=== PATIENT | male | born 1950 | race Caucasian/White ===

== ENCOUNTER 2016-05-05 12:43 | Inpatient (IN) | payer MEDICAID ==
[~2016-05-05] VITALS: Ht 177.8 cm; Wt 95.9 kg
[2016-05-05 14:07] LABS: BASOPHILS 0.4 % (0.0-2.0); EOSINOPHILS 0.9 % (0-7); IMMATURE GRANULOCYTES 0.9 % (0-5); LYMPHOCYTES 8.9 % (15-50); MCH 29.8 pg (26.0-34.0); MCHC 31.7 g/dL (31.0-37.0); MEAN PLATELET VOLUME 10.7 fL (7.4-10.4); MONOCYTES 9.4 % (2-11); NEUTROPHILS 79.5 % (40-80); PLATELET COUNT 277 10x3/uL (130-400); RBC 4.36 10x6/uL (4.20-6.10); RDW 14.7 % (11.5-14.5)
[2016-05-05 14:46] LABS: ALBUMIN 2.6 g/dL (3.4-5.0); ANION GAP 11.9 mmol/L (8-16); BILIRUBIN - TOTAL 0.59 mg/dL (0.2-1.3); CALCIUM 8.9 mg/dL (8.5-10.1); CARBON DIOXIDE 30.1 mmol/L (21.0-32.0); CREATININE - SERUM 1.4 mg/dL (0.6-1.3); PROTEIN - SERUM 7.1 g/dL (6.4-8.2)
[2016-05-05 16:41] LABS: CREATINE KINASE 92 UL (21-232); MAGNESIUM - SERUM 2.3 mg/dL (1.8-2.4)
[2016-05-05 16:49] LABS: KETONE - SERUM NEGATIVE (NEGATIVE)
--- NOTE | 2016-05-05 18:12 | NUR ---
RECEIVED FROM ER VIA STRECHER, LASIX GIVEN IN ER, L.FA., EDEMA TO LOWER EXTREMIES
[2016-05-05] MEDS ORDERED: CORDARONE200 MG PO (18:21)
[2016-05-05] MEDS ORDERED: FUROSEMIDE40 MG PO (18:21)
[2016-05-05] MEDS ORDERED: K-DUR20 MEQ PO (18:21)
[2016-05-05] MEDS ORDERED: COREG 3.1253.125 MG PO (18:22)
--- NOTE | 2016-05-05 18:30 | NUR ---
PT IN BED DRY HACKING COUGH NOTED PT REQUESTS COUGH SYRUP TOLD PT WOULD CHECK ORDERS
[2016-05-05] MEDS ORDERED: GLUCOPHAGE1000 MG PO (19:02)
[2016-05-05] MEDS ORDERED: LISINOPRIL10 MG PO (19:03)
[2016-05-05 20:17] LABS: HEMOGLOBIN A1C 9.7 % (4.8-6.0)
[2016-05-05 22:29] VITALS: BP 134/77; BMI 32.3
--- NOTE | 2016-05-05 22:49 | NUR ---
PT ARRIVED FROM ER BY STRETCHER LOWER EDEMA+3 OBSERVEDANDABDDISTENDED PT IBM822% ON ROOM AIR AND DIMINISHED LUNG SOUNDS TO LOWER LOBES. RESPERATIONS UNLABORED. LOWER EDEMA TO LOWER RIGHT AND LEFT LEGS WITH EXCORIATION PRESENT HEELS BRIGED AND BED BATH GIVEN AND LINENS CHANGED WILL MONITOR PT
[2016-05-05 23:13] VITALS: BP 131/100
--- NOTE | 2016-05-06 03:33 | NUR ---
PT LAYING IN BED EYES CLOSED NO DISTRESS OBSERVED AT THIS TIME RESPERATIONS EVEN AND UNLABORED ON ROOM AIR PIV SALINE LOCKED AND NO REDNESS OR SWELLING OBSERVED WILL MONITOR
[2016-05-06 04:04] VITALS: BP 122/83
[2016-05-06 05:16] LABS: BASOPHILS 0.3 % (0.0-2.0); EOSINOPHILS 0.1 % (0-7); HEMATOCRIT 40.3 % (42.0-54.0); HEMOGLOBIN 12.6 g/dL (13.5-17.5); IMMATURE GRANULOCYTES 0.5 % (0-5); LYMPHOCYTES 10.8 % (15-50); MCH 29.5 pg (26.0-34.0); MCHC 31.3 g/dL (31.0-37.0); MCV 94.4 fL (80.0-100.0); MEAN PLATELET VOLUME 11.1 fL (7.4-10.4); MONOCYTES 7.1 % (2-11); NEUTROPHILS 81.2 % (40-80); PLATELET COUNT 315 10x3/uL (130-400); RBC 4.27 10x6/uL (4.20-6.10); RDW 14.8 % (11.5-14.5); WBC 9.3 10x3/uL (4.8-10.8)
[2016-05-06 05:26] LABS: ANION GAP 9.5 mmol/L (8-16); CALCIUM 8.6 mg/dL (8.5-10.1); CARBON DIOXIDE 31.4 mmol/L (21.0-32.0); CREATININE - SERUM 1.6 mg/dL (0.6-1.3)
[2016-05-06 05:36] LABS: POTASSIUM - SERUM 4.9 mmol/L (3.5-5.1)
--- NOTE | 2016-05-06 07:22 | NUR ---
0710-SITTING UP IN BED, DENIES NEEDS AT PRESENT TIME. DRIED POOP SEEN TO HEART MONITOR. BILATERAL LOWER LEGS ARE RED WITH WHITE PATCHES AND WEEPING EDEMA, BOTTOM OF FEET ARE PEELING. ON HEART MONITOR SHOWING SR, HR 73. WILL CONTINUE TO MONITOR.
[2016-05-06 07:56] VITALS: BP 107/64
--- NOTE | 2016-05-06 08:39 | HP ---
PATIENT: JOAQUINA MCKEON MEDICAL RECORD: [id number] ACCOUNT: [id number] LOCATION:[address] : [birth year] ADMISSION DATE: 05/05/16 HISTORY AND PHYSICAL EXAMINATION Admission History and Physical DATE OF ADMISSION: 05/05/2016 REASON FOR ADMISSION: Increased lower extremity edema, cough, fever, hard time breathing, uncontrolled diabetes. HISTORY OF PRESENT ILLNESS: This is a 66-year-old white male who states he moved back to [place] 4 or 5 months ago to live with his son. He was here back in 2007 and prior to that, he had been living in [place]. He does not have a local primary care doctor. He states he has high blood pressure and diabetes. He is not aware of diagnosis of atrial fibrillation. He came in with increased lower extremity edema, cough, fever and hard time breathing. In the ER, he was noted to have 3-4+ pitting edema in the lower extremities with some open wounds. He has anasarca to the abdominal area. His potassium was elevated at 6.0, glucose elevated at 356. ProBNP is 9093. EKG showed atrial fibrillation with rapid ventricular response with a rate of 119. He is admitted for further care. PAST MEDICAL AND SURGICAL HISTORY: Again, diabetes, hypertension, hyperlipidemia, he does not know of any coronary problems. PAST SURGICAL HISTORY: None. ALLERGIES: PENICILLIN, SULFA, AND FLU SHOT. 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 FAMILY HISTORY: Father in his 70s of a stroke. He had hypertension. Mother of liver cancer at age 86. A sister with diabetes. HABITS: He states he is a former smoker, quitting years ago. He used to drink heavily, quit years ago. Denies any illicit drug use. REVIEW OF SYSTEMS: HEENT: No particular sinus or allergy problems. RESPIRATORY: No known diagnosis of emphysema or asthma. CARDIAC: No history of coronary artery disease. GASTROINTESTINAL: No known reflux. GENITOURINARY: No significant problems there. MUSCULOSKELETAL: He denies any arthritis. NEUROLOGIC: No seizure disorder. No migraine headaches. PSYCHIATRIC: Denies depression or melancholia. PHYSICAL EXAMINATION: VITAL SIGNS: Today from the ER, temperature 98.2, pulse was 118, respirations 18, blood pressure 117/80, O2 sat 97%. He states he was having generalized pain 5/10. HEENT: Very poor dentition with many teeth missing. NECK: No bruits. HISTORY AND PHYSICAL [id number] JOAQUINA MCKEON HEART: Irregularly irregular. LUNGS: A few rales in the bases. ABDOMEN: Soft, distended, nontender. EXTREMITIES: With 3-4+ pitting edema, cellulitis noted and sloughing of skin on the feet and both lower extremities. LABORATORY DATA: CBC showed a white count of 8000, hemoglobin 13, hematocrit 41. Basic metabolic panel: Sodium 136, potassium high at 6.0, chloride 100, CO2 of 30.1, BUN 26, creatinine 1.4, glucose was 356, calcium 8.9. Amylase 34, lipase ____. CK 92. TSH 3.4, magnesium 2.3, ammonia level is 11. Liver functions are all okay. ProBNP elevated at 9093. DIAGNOSTIC DATA: EKG: Atrial fibrillation with rapid ventricular response at 119. ASSESSMENT: 1. Uncontrolled diabetes. 2. Hyperkalemia. 3. Lower extremity edema. 4. Cellulitis. 5. Atrial fibrillation with rapid ventricular response. PLAN: We will start him on antibiotics for cellulitis, telemetry, we will check hemoglobin A1c, start on insulin sliding scale, order echo, consult cardiology, diuresis, Lovenox, Pepcid. I believe an order of Kayexalate was ordered from the Emergency Room and we will hold his potassium. Further workup is needed. TRANSINT:[id number] Voice Confirmation ID: [id number] DOCUMENT ID: [id number] ASHANTI SHARP MD at 0839 CC: [id number] DICTATION DATE: 05/05/161858 SUPERVISOR PARK WORKERS: 05/05/16 193 ADM IN [facility] [address] [place] [address]
--- NOTE | 2016-05-06 09:47 | NUR ---
WOUND CARE CONSULT: PT HAS 4+ EDEMA TO BLE WITH REDNESS AND WEEPING. HE HAS NUMEROUS WOUNDS BILATERALLY WITH THE LARGEST WOUND MEASURING 9CM X 9CM X WHITE/MARQUEZ ESCHAR ON THE LEFT LATERAL CALF. BILATERAL HEELS AND PLANTAR FEET ARE WRINKLED AND MACERATED. THERE IS A STAGE 2 PRESSURE INJURY NOTED ON THE RIGHT COCCYX MEASURING 2CM X 4CM - WOUND BED IS PINK - WOUND IS TENDER TO THE TOUCH - SCANT BLOODY DRAINAGE. STAGE 2 PRESSURE INJURY NOTED ON THE LEFT COCCYX MEASURING 0.5CM X 0.5CM - PINK WOUND BED WITH SCANT BLOODY DRAINAGE. CLEANSED LEGS AND FEET WITH SAF CLENS AND PATTED DRY. LEFT OPEN TO AIR. CLEANSED BOTTOM WITH SAF CLENS AND PATTED DRY AND COVERED WITH MEPILEX SACRAL DRESSING TO PROTECT. PT REPOSITIONED TO HIS LEFT SIDE. WOUND CARE WILL CONTINUE TO MONITOR.
--- NOTE | 2016-05-06 10:26 | NUR ---
RECEIVED CALL BACK FROM EMMA AT DR SHARP'S OFFICE FOR A ADA DIET. WILL PLACE THE ORDER.
[2016-05-06 10:53] LABS: APPEARANCE CLEAR (CLEAR); COLOR YELLOW (YELLOW); LEUKOCYTE ESTERASE NEGATIVE (NEGATIVE); SPECIFIC GRAVITY 1.015 (1.005-1.020)
[2016-05-06 10:54] LABS: BILIRUBIN NEGATIVE (NEGATIVE); GLUCOSE NEGATIVE (NEGATIVE); KETONE NEGATIVE (NEGATIVE); NITRITE NEGATIVE (NEGATIVE); PROTEIN NEGATIVE (NEGATIVE); UROBILINOGEN NORMAL (NORMAL)
[2016-05-06 11:37] VITALS: BP 91/59
--- NOTE | 2016-05-06 12:34 | NUR ---
0800-PATIENT IS CLEANED UP FROM INCONTINENT CARE OF STOOL AND URINE. SALINE LOCK SEEN TO LEFT FA, FLUSHES WELL. PATIENT HAS BILATERAL WHEEZING HEARD THROUGHOUT HIS LUNG GONCALVES, COUGHS WITH NO SPUTUM. PATIENT HAS 4+ EDEMA WITH REDNESS TO LOWER EXTREMITIES AND WEEPING SEEN. THERE IS SOME WHITE/VITALE ESCHAR SEEN TO LEFT LATERAL CALF. BILATEAL HEELS HAVE WRINKLES AND ARE MACERATED. STAGE 2 SEEN TO LEFT BUTTOCK, NO DRAINAGE SEEN. WOUND CARE CONSULT HAS BEEN PLACED. WILL CONTINUE TO MONITOR.
[2016-05-06 13:00] VITALS: Ht 177.8 cm; Wt 95.9 kg
--- NOTE | 2016-05-06 15:02 | NUR ---
CLEANED UP AGAIN FROM INCONT. OF STOOL. 100 CC OF URINE TO URNIAL NOTED.
[2016-05-06 15:40] VITALS: BP 95/63
[2016-05-06 20:57] VITALS: BP 87/70
--- NOTE | 2016-05-06 21:40 | NUR ---
PT AWAKE, ALERT, ORIENTED, DENIES ANY NEEDS OTHER THAN WANTING A SNACK. PT REQUESTS PUDDING, WILL GIVE HIM ONE CUP. CONTINUE TO MONITOR CLOSELY. WE DISCUSSED THE USE OF A SORIA CATHETER R/T HIM DIURESING AND BEING CONSTANTLY WET FROM THE WEEPING EDEMA AND URINE INCONTINENCE. PT IS AGREEABLE. WILL PLACE SORIA AND CONTINUE TO MONITOR PT CLOSELY. BED LOW, CALL LIGHT IN REACH, SIDE RAILS X 2, HOB 30 DEGREES.
[2016-05-07 00:34] VITALS: BP 119/68
[2016-05-07 04:31] VITALS: BP 100/65
--- NOTE | 2016-05-07 04:39 | NUR ---
PT HAS BEEN COUGHING EXCESSIVELY THIS SHIFT, UNPRODUCTIVE, AND FREQUENTLY. THERE IS NO PRN COUGH RX AT THIS TIME. WILL DISCUSS WITH DAY SHIFT ABOUT GETTING AN ORDER FROM PHYSICIAN. CONTINUE TO MONITOR CLOSELY.
--- NOTE | 2016-05-07 06:05 | NUR ---
PT AWAKE, ALERT, ORIENTED, SORIA PLACED, 200CC OF DARK, CONCETRATED URINE RETURNED. PT TOLERATED PLACEMENT WELL. DENIES ANY NEEDS. CONTINUE TO MONITOR CLOSELY.
[2016-05-07 07:40] VITALS: BP 100/67
[2016-05-07 11:48] VITALS: BP 90/57
--- NOTE | 2016-05-07 12:00 | NUR ---
PT HAVING SLIGHT TROUBLE BREATHING. RR 19 AND SLIGHTLY LABORED. 02 SAT 88%. PLACED NC @3L ON PT AND HE STATES HE IS BREATHING MUCH BETTER. 02 SAT INCREASED TO 96% PT VOICED THANKS AND IS RESTING QUIETLY. CL IN REACH. WILL CPOC.
--- NOTE | 2016-05-07 14:11 | NUR ---
Patient Name: JOAQUINA MCKEON Admission Status: ER Accout number: [id number] Admission Date: 05-05-2016 : 1950 Admission Diagnosis: Attending: BARRY Current LOS: 2 Anticipated DC Date: Planned Disposition: Home Primary Insurance: MEDICAID [place] Discharge Planning Comments: * Is the patient Alert and Oriented? Yes 0 * How many steps to enter\exit or inside your home? 2 0 * PCP NONE 0 * Pharmacy [facility] 0 * Preadmission Environment Home with Family 0 * ADLs Independent 0 * Equipment None 0 * Other Equipment NO MEDICAL EQUIPMENT PROVIDER PREFERENCE 0 * List name and contact numbers for known caregivers / representatives who currently or will assist patient after discharge: MYRANDA MCKEON, SON, 0 * Community resources currently utilized None 0 * Please name any agencies selected above. NONE 0 * Additional services required to return to the preadmission environment? No 0 * Can the patient safely return to the preadmission environment? Yes 0 * Has this patient been hospitalized within the prior 30 days at any hospital? No 0 CM MET WITH PT IN ROOM TO DISCUSS DISCHARGE PLANNING AND NEEDS. PT REPORTS LIVING AT HOME INDEPENDENTLY WITH AN ADULT FRIEND THAT ASSISTS WITH COOKING AND CLEANING. PT HAS NO MEDICAL EQUIPMENT AND NO OUTSIDE SERVICES ASSISTING IN THE HOME. CM DISCUSSED AVAILABILITY OF HOME HEALTH, REHAB SERVICES AND MEDICAL EQUIPMENT. PT DENIES DISCHARGE NEEDS, REPORTS HIS SON WILL PICK HIM UP FOR DISCHARGE HOME. PT HAS NO PRIMARY CARE DOCTOR AND WAS NOT FAMILIAR WITH MEDICAID TRANSPORTATION SERVICES. CM DISCUSSED [facility] C[facility] AND PROVIDED PT WITH [facility] INFORMATION TO ASSIST PT IN OBTAINING PRIMARY CARE. CM PROVIDED AND DISCUSSED [place] TRANSPORATION ([place]) NUMBERS AND HOW TO CERTIFY AND ARRANGE TRANSPORTATION IF HE QUALIFIES. PT PLANS TO DISCHARGE HOME WITH NO ANTICIPATED NEEDS. CM TO FOLLOW AND ASSIST NEEDED. Pump Installation And Servicer: Antoine Whittaker
--- NOTE | 2016-05-07 14:23 | NUR ---
EMPTIED SORIA BAG OF 1000ML YELLOW URINE. PT IS RESTING SITTING UP IN BED WATCHING TV. DENIES ANY PAIN OR CURRENT NEEDS. CL IN REACH. WILL CPOC.
[2016-05-07 16:18] VITALS: BP 94/66
--- NOTE | 2016-05-07 18:35 | NUR ---
PT HAS CONSISTENT HARSH DRY COUGH. REQUESTING SOMETHING TO HELP RELIEVE IT. CALLED AND REC'D NEW ORDERS. PT VOICED THANKS. NO FURTHER NEEDS AT THIS TIME.
--- NOTE | 2016-05-07 19:01 | NUR ---
PT ASKED TO GET OOB TO USE BR FOR BM. ASSISTED PT WITH MINIMAL ASSIST AND FOUND PTS SORIA TO BE PULLED OUT. PT STATES HE DIDNT EVEN NOTICE IT. PT WANTS TO USE URINAL INSTEAD OF HAVING A NEW SORIA PLACED SO WE WILL TRY THAT FOR NOW. CHANGED OUT LINENS AND PROVIDED PT WITH LOTION FOR SEVERLY DRY CRACKING FEET. PT VOICED THANKS AND STATES HE FEELS BETTER. SON AT BEDSIDE. PT RESTING AND DENIES ANY FURTHER NEEDS AT THIS TIME. CL IN REACH. WILL CPOC.
[2016-05-07 22:01] VITALS: BP 101/53
--- NOTE | 2016-05-08 00:12 | NUR ---
PT LYING IN BED, AWAKE, ALERT, ORIENTED, WAS HUNGRY EARLIER FROM BEING HELD NPO FOR ABD U/S. I GAVE HIM A TURKEY SANDWICH, CHOCOLATE PUDDING, VANILLA ICE CREAM, AND DIET L[place]ON [place]. WILL GET PT UP TO SHOWER, CHANGE LINENS, AND CONTINUE TO MONITOR CLOSELY.
[2016-05-08 01:10] VITALS: BP 110/73
[2016-05-08 05:33] VITALS: BP 106/75
[2016-05-08 06:00] LABS: ANION GAP 8.4 mmol/L (8-16); CALCIUM 8.5 mg/dL (8.5-10.1); CARBON DIOXIDE 35.3 mmol/L (21.0-32.0); CREATININE - SERUM 1.5 mg/dL (0.6-1.3); POTASSIUM - SERUM 3.7 mmol/L (3.5-5.1)
--- NOTE | 2016-05-08 06:42 | NUR ---
PT LYING IN BED, EYES CLOSED, RESPIRATIONS EVEN AND UNLABORED, EASILY ROUSABLE TO VERBAL STIMULI. CONTINUE TO MONITOR CLOSELY.
[2016-05-08 08:00] VITALS: BP 112/70
--- NOTE | 2016-05-08 09:02 | NUR ---
SHIFT ASSESSMENT COMPLETED. ADMINISTERED MORNING MEDICATIONS. PT IS A&O SITTING UP IN BED WATCHING TV RESTING QUIETLY. RR NONLABORED WITH NC @3L IN PLACE. UPPER LOBES HAVE WHEEZING AND RUBBING NOTED AND LOWER ARE DIMINISHED. PT REQUESTED AND WAS PROVIDED WITH PRN COUGH SYRUP FOR DRY COUGH. PT STATES HIS COUGH HAS IMPROVED GREATLY AFTER HIS FIRST DOSE LAST NIGHT. EMPTIED URINAL OF 300ML CLEAR YELLOW URINE. PT HAS A L.FA PIV THAT IS PATENT AND HAS DRSG CDI AND SWAB CAPS IN USE. PT HAS BILAT LE CELLULITIES AND BOTH CALVES ARE VERY RED, WARM TO THE TOUCH, AND HAVE OPENED AREAS WITH SORES THAT HAVE YELLOW TO BLACK NECROTIC BEDDING. CHANGED OUT LINENS R/T THEM BEING SOILED UNDER LEGS. PT VOICED THANKS AND STATES HE FEELS GOOD. PT DENIES ANY FURTHER NEEDS AT THIS TIME. CL IN REACH, BED IN LOWEST, SIDE RAILS X2. WILL CPOC.
[2016-05-08 12:00] VITALS: BP 101/55
--- NOTE | 2016-05-08 12:04 | NUR ---
FSBS 248 PT REC'D 4 UNITS PER SS. PT SITTING UP IN BED RESTING QUIETLY WATCHING TV AND EATING LUNCH TRAY. PT DENIES ANY CURRENT PAIN OR FURTHER NEEDS AT THIS TIME. CL IN REACH, BED IN LOWEST, SIDE RAILS X2. WILL CPOC.
--- NOTE | 2016-05-08 13:02 | EC ---
PATIENT:JOAQUINA MCKEON DATE OF SERVICE: 05/05/16 SEX: M MEDICAL RECORD: [id number] DATE OF : [birth year] LOCATION:D.M2 D.210 AGE OF PATIENT: 66 ADMISSION DATE: 05/05/16 REFERRING PHYSICIAN: INTERPRETING PHYSICIAN: BERT SANCHEZ MD ECHOCARDIOGRAM REPORT ECHO CHARGES 4 ECHO COMPLETE CLINICAL DIAGNOSIS: CHF/LE EDEMA/AFIB ECHOCARDIOGRAPHIC MEASUREMENTS (adult normal given) AC root (d.<3.7cm) 3.7 LV Septum d (<1.2 cm> 1.6 Valve Excursion 2.1 LV Septum (systole) 1.8 Left Atria (s.<4.0cm> 4.1 LVPW d(<1.2cm) 1.4 RV (d.<2.3cm) 3.9 LVPW (sytole) 1.5 LV diastole(<5.6CM) 7.0 MV E-F(>70mm/sec) LV systole 5.7 LVOT Diameter 1.3 MV exc.(>10mm) 1.5 Est.ejection fraction (50-75%) Pericardial Effusion N DOPPLER: LVIT A 92.0 E 42.0 LA RVSP 57 LVOT 82 AOP1/2T Asc. Ao 128 RVOT 68 RA PA 102 AV Gradient Peak 6.51 AV Mean 3.3 AV Area 1.0 MV Gradient Peak 4.09 MV Mean 1.4 MV Area COMMENTS: Automatic Edger: Wayne WEISS Real Estate Marketing Coordinator:Jaye Rodriguez TAPE# PACS DATE OF SERVICE: 05/06/2016 Adequate 2D echo, color flow, spectral Doppler and M-mode. LVH is present. LV internal dimensions are dilated. LV is globally hypokinetic with reduced EF, estimated EF is 30% to 35%. Aortic valve sclerosis without stenosis by Doppler interrogation. The left atrium is mildly dilated at ____ cm. Mitral valve is thickened with no prolapse. Mild MR. Right-sided chamber appear dilated. Moderate TR by color flow imaging. TRANSINT:[id number] Voice Confirmation ID: [id number] DOCUMENT ID: [id number] ECHOCARDIOGRAM REPORT [id number] JOAQUINA MCKEON BERT SANCHEZ MD at 1302 CC: [id number] DICTATION DATE: 05/06/161426 COMPUTER SCIENCE INSTRUCTOR: 05/06/162118 ADM IN [facility] [address] [facility]
--- NOTE | 2016-05-08 15:51 | NUR ---
WOUND CARE REASSESSMENT: NOTED SOME BLOODY DRAINAGE FROM AREAS ON BLE AFTER BEING UP WALKING WITH PHYSICAL THERAPY. LEFT LEG IS MORE EDEMATOUS THAN RIGHT LEG, BUT EDEMA HAS DECREASED. SKIN IS PEELING. CLEANSED LEGS WELL WITH SAF CLEANS AND DRIED. COVERED DRAINING AREAS WITH 4X4S AND SECURED WITH KERLIX. WILL CONTINUE TO MONITOR.
[2016-05-08 16:00] VITALS: BP 101/56
[2016-05-08 20:00] VITALS: BP 112/68
[2016-05-09] VITALS: BP 109/59; BP 91/63
--- NOTE | 2016-05-09 00:26 | NUR ---
FORMULATION TECHNICIAN AT BEDSIDE TO OBTAIN VITALS, CALL LIGHT IN REACH. WILL CONTINUE WITH PLAN OF CARE.
--- NOTE | 2016-05-09 00:30 | NUR ---
RESTING IN BED. AROUSES TO VOICE. ALERT ORIENTED CONVERSANT. DENIES NEEDS. NO ACUTE DISTRESS NOTED.
[2016-05-09 06:35] LABS: ANION GAP 7.4 mmol/L (8-16); CARBON DIOXIDE 35.1 mmol/L (21.0-32.0); CREATININE - SERUM 1.3 mg/dL (0.6-1.3); POTASSIUM - SERUM 3.5 mmol/L (3.5-5.1)
[2016-05-09 08:00] VITALS: BP 105/88
--- NOTE | 2016-05-09 08:00 | NUR ---
ASSESSMENT DONE. PT SLEEPING. EASILY AROUSED. NO DISTRESS NOTED. DENIES NEEDS. DRESSINGS TO BILATERAL LE. CALL LIGHT WITH IN REACH. WILL CONT. TO MONITOR.
--- NOTE | 2016-05-09 10:34 | NUR ---
PT AMB IN [facility] WITH PT.
[2016-05-09 12:00] VITALS: BP 93/58
--- NOTE | 2016-05-09 14:21 | NUR ---
Nutrition Follow Up: Chart reviewed. Diet: ADA PO intake: 69% (9 meal avg) I>O +BM 05/08/16 Wt loss 12# since admit Labs noted - Glucose elevated Meds: Lasix, Humalog, Lantus Multiple stage II ulcers, cellulitis to BLE - wound care following Pt with fair po intake at this time. Rec continue current diet. Will send Ramírez BID to promote wound healing. RD following.
--- NOTE | 2016-05-09 18:16 | NUR ---
PT LAYING IN BED WATCHING TV. DENIES NEEDS AT THIS TIME. NO DISTRESS NOTED. CALL LIGHT WITH IN REACH. WILL CONT. TO MONITOR.
[2016-05-09 22:35] VITALS: BP 110/63
--- NOTE | 2016-05-10 01:15 | NUR ---
PT RESTING SOUNDLY WITHOUT C/O OR DISTRESS NOTED. CALL LIGHT IS WITHIN REACH. NO NEEDS VOICED. WILL MONITOR.
[2016-05-10 01:32] VITALS: BP 93/60
[2016-05-10 05:59] VITALS: BP 97/57
--- NOTE | 2016-05-10 07:43 | NUR ---
AM ROUNDING DONE, PATIENT LAYING ON RIGHT SIDE WITH EYES CLOSED, RESP ARE EVEN AND NON LABORED. BILATERAL DRESSINGS SEEN TO LOWER LEGS, DRY AND INTACT. ON HEART MONITOR SHOWING CAF, HR 85. SALINE LOCK SEEN TO LEFT FA. WILL CONTINUE TO MONITOR.
[2016-05-10 07:55] LABS: ANION GAP 5.2 mmol/L (8-16); CALCIUM 8.3 mg/dL (8.5-10.1); CARBON DIOXIDE 39.6 mmol/L (21.0-32.0); CREATININE - SERUM 1.2 mg/dL (0.6-1.3); POTASSIUM - SERUM 3.8 mmol/L (3.5-5.1)
[2016-05-10 08:00] VITALS: BP 105/78
[2016-05-10 12:33] VITALS: BP 97/60
--- NOTE | 2016-05-10 13:34 | NUR ---
BILATERAL DRESSING CHANGES DONE ORDERED. LEGS ARE CLEANSED USING SAF CLENS AND PAT DRY. OPEN AREAS ARE COVERED WITH DRY 4 X 4'S, WRAPPED IN KATHLEEN, AND SECRUED WITH PLASTIC TAPE. DATED. TOLERATED WELL.
[2016-05-10 16:00] VITALS: BP 104/56
--- NOTE | 2016-05-10 17:31 | NUR ---
PATIENT TO REFUSE HIS CLEOCIN AND LASIX. REPORTS THAT HE IS "TAKING TO MUCH MEDICINE".
[2016-05-10 20:30] VITALS: BP 102/61
--- NOTE | 2016-05-10 23:35 | NUR ---
AWAKE WATCHING TV. HAS CALL LIGHT IN HAND. DENIES ANY NEEDS OR DISCOMFORTS.
[2016-05-11 00:30] VITALS: BP 114/78
[2016-05-11 04:30] VITALS: BP 101/59
[2016-05-11 05:37] LABS: ANION GAP 6.1 mmol/L (8-16); CARBON DIOXIDE 36.1 mmol/L (21.0-32.0); CREATININE - SERUM 1.2 mg/dL (0.6-1.3); POTASSIUM - SERUM 4.2 mmol/L (3.5-5.1)
--- NOTE | 2016-05-11 07:36 | NUR ---
PT SITTING UP IN BED SLEEPING NO S.S DISTRESS NOTED WILL CONTINUE TO MONITOR.
[2016-05-11 09:00] VITALS: BP 108/63
[2016-05-11 11:58] VITALS: BP 93/54
[2016-05-11] MEDS ORDERED: CLEOCIN HCL300 MG PO (13:52)
[2016-05-11] MEDS ORDERED: ELIQUIS5 MG PO (13:53)
[2016-05-11] MEDS ORDERED: LANTUS INSULIN10 ML SC (13:54)
[2016-05-11] MEDS ORDERED: ROBITUSSIN AC (10 M1 PO (13:55)
--- NOTE | 2016-05-11 14:17 | NUR ---
LYING QUIETLY. DENIES ANY NEEDS. FAMILY AT BED SIDE. CALL LIGHT IN REACH WITH SR UP. WILL MONITOR
--- NOTE | 2016-05-11 17:16 | NUR ---
PT DISCHARGED. IV DCD WITH TIP INTACT. INSTRUCTIOBS GIVEN, AWAITING HIS SON TO PICK HIM UP
--- NOTE | 2016-05-11 18:02 | NUR ---
TO PRIVATE CAR PER WHEEL CHAIR
--- NOTE | 2016-05-11 18:06 | NUR ---
Late Entry CM met w/ patient after receiving home health orders. Spoke with DR Carrera and he will be following the patient for this episode of care as patient has no PCP. Patient had no preferred provider for home health services. CM reviewed the home health provider list. [facility] was selected. TC to [facility]. CM spoke w/ on-call nurse, [place]. Awaited CB w/ approval from h/h senior clinical project manager. Patient was accepted. CM faxed referral, d/c med list and d/c instructions w/ wound care. CM requested patient be sent home w/ dressing materials for 3 days. Patient' son was called by [employer] attorney. Son is providing transportation to home. Patient is in agreement w/ plan. CM confirmed contact information. Home care planning to see the patient Thursday or Thursday.
== END 2016-05-11 18:03 | disposition home health service (06) | DRG 292 ==
LOC: D.ER 12:43 → D.M2 16:56
PROVIDERS: Emergency Medicine; ADMIT Family Medicine
DX: I11.0 Hypertensive heart disease with heart failure (principal); L03.116 Cellulitis of left lower limb; L03.115 Cellulitis of right lower limb; E11.65 Type 2 diabetes mellitus with hyperglycemia; Z79.4 Long term (current) use of insulin; I50.9 Heart failure, unspecified; E78.5 Hyperlipidemia, unspecified; E87.5 Hyperkalemia; I48.2 Chronic atrial fibrillation; Z87.891 Personal history of nicotine dependence

== ENCOUNTER 2016-05-13 21:53 | Emergency (ER) | payer MEDICAID ==
[2016-05-06 13:00] VITALS: BMI 32.2
[~2016-05-13 21:53] MED LIST: CLEOCIN HCL300 MG PO; CORDARONE200 MG PO; COREG 3.1253.125 MG PO; ELIQUIS5 MG PO; FUROSEMIDE40 MG PO; GLUCOPHAGE1000 MG PO; K-DUR20 MEQ PO; LANTUS INSULIN10 ML SC; LISINOPRIL10 MG PO; ROBITUSSIN AC (10 M1 PO
[2016-05-13 22:48] LABS: BASOPHILS 0.5 % (0.0-2.0); HEMATOCRIT 40.1 % (42.0-54.0); HEMOGLOBIN 12.3 g/dL (13.5-17.5); IMMATURE GRANULOCYTES 0.3 % (0-5); LYMPHOCYTES 16.7 % (15-50); MCH 28.9 pg (26.0-34.0); MCHC 30.7 g/dL (31.0-37.0); MCV 94.4 fL (80.0-100.0); MEAN PLATELET VOLUME 11.1 fL (7.4-10.4); MONOCYTES 8.3 % (2-11); NEUTROPHILS 73.2 % (40-80); PLATELET COUNT 288 10x3/uL (130-400); RBC 4.25 10x6/uL (4.20-6.10); RDW 14.6 % (11.5-14.5); WBC 6.1 10x3/uL (4.8-10.8)
[2016-05-13 23:01] LABS: ALKALINE PHOSPHATASE 66 U/L (46-116); ALT (SGPT) 25 U/L (10-68); CALC OSMOLALITY 285 mosm/kg (275-300); CALCIUM 8.7 mg/dL (8.5-10.1); CARBON DIOXIDE 35.3 mmol/L (21.0-32.0); CHLORIDE - SERUM 102 mmol/L (98-107); CREATININE - SERUM 1.3 mg/dL (0.6-1.3); POTASSIUM - SERUM 4.2 mmol/L (3.5-5.1); PROTEIN - SERUM 7.3 g/dL (6.4-8.2); SODIUM 141 mmol/L (136-145); UREA NITROGEN 23 mg/dL (7-18); eGFR NON AFRICAN AMERICAN 59 mL/min (90-120)
[2016-05-13 23:20] LABS: GLUCOSE 114 mg/dL (74-106)
[2016-05-13 23:21] LABS: CHOL - HDL RATIO 3.4 ratio (2.3-4.9); CHOLESTEROL, TOTAL 105 mg/dL (0-200); CKMB 0.9 U/L (0.0-3.6); CREATINE KINASE 55 UL (21-232); HDL CHOLESTEROL 31 mg/dL (32-96); LDL CHOLESTEROL 55 mg/dL (0-100); LDL-HDL RATIO 1.8 ratio (1.5-3.5); PRO BNP 11141 pg/mL (0-125); TRIGLYCERIDE 95 mg/dL (30-200)
[2016-05-15] MEDS ORDERED: PROVENTIL/2.5 MG/3 M INH (20:48)
== END 2016-05-14 00:55 | disposition home or self-care (01) ==
LOC: D.ER 21:53
PROVIDERS: Emergency Medicine
DX: R07.9 Chest pain, unspecified (principal); K76.9 Liver disease, unspecified; R18.8 Other ascites; I50.9 Heart failure, unspecified; E11.9 Type 2 diabetes mellitus without complications; E87.5 Hyperkalemia; F17.200 Nicotine dependence, unspecified, uncomplicated

== ENCOUNTER 2016-05-14 14:53 | Inpatient (IN) | payer MEDICAID ==
[~2016-05-14] VITALS: Ht 177.8 cm; Wt 98.8 kg
--- NOTE | ~2016-05-14 | HEMODYNAMI ---
PATIENT:JOAQUINA MCKEON MEDICAL RECORD: [id number] : 54 [facility] AD[facility] DATE: 05/14/16 Generatedon:05/15/201615:59 Patient name: JOAQUINA MCKEON Patient #: [id number] SSN: : 1950 Date of study: 05/15/2016 Page: Of Hemodynamic Procedure Report Patient Data Patient Demographics Procedure consent was obtained First Name: JOAQUINA Gender: Male Last Name: MIKE : 1950 Patient #: [id number] Age: 66 year(s) Race: Additional ID: [id number] Contact details Address: [address] [place] [address] State: [place] [facility] [place] code: [address] Past Medical History Allergies Allergen Reaction Date Comments Reported Other allergy 05/15/2016 FLU VACCINE Penicillins 05/15/2016 Sulfa drugs 05/15/2016 Admission Admission Data Admission Date: 05/14/2016 Admission Time: 17:22 Admit Source: Emergency department Room #: D.2119 Lab Results Lab Result Date: 05/15/2016 Lab Result Time: 6:18 Biochemistry Name Units Result Min Max BUN mg/dl 12 --(-*--)-- 7 18 Creatinine mg/dl 0.9 --(-*--)-- 0.6 1.3 CBC Name Units Result Min Max Hematocrit % 39.9 -*(----)-- 42 54 Hemoglobin g/dl 13.7 --(*---)-- 13.5 17.5 Procedure Procedure Types Cath Procedure Diagnostic Procedure C [facility] w/Coronaries PCI Procedure Coronary Stent Initial Peripheral Cath Diagnostic Procedure Cath Peripheral Evdhk-Jkfhate-Nlt-Off Procedure Description Procedure Date Procedure Date: 05/15/2016 Procedure Start Time: 15:37 Procedure End Time: 15:51 Procedure Staff Name Function Sander Elena RT Monitor Fabian Clarke RT Scrub Kan Juarez RN Press Operator Breezy Hernandez MD Performing Physician Zulema Stoner RN Nurse Jose A Reynaga RT Scrub Procedure Data Cath Procedure Fluoroscopy Diagnostic fluoroscopy Total fluoroscopy Time: 2.7 time: 2.7 min min Diagnostic fluoroscopy Total fluoroscopy dose: dose: 1045 mGy 1045 mGy Contrast Material Contrast Material Type Amount (ml) Isovue 300 154 Entry Location Entry Primary Successful Side Size Upsize Upsize Entry Closure Succes sful Closure Location (Fr) 1 (Fr) 2 (Fr) Remarks Device Remarks Femoral Right 5 Fr 6 Fr Vascade artery Short Closure System Estimated blood loss: 10 ml Diagnostic catheters Device Type Used For End Catheter Placement Cordis 5Fr Pigtail Procedure Catheter (MP) Cordis 5Fr JL 4.0 Procedure Catheter (MP) Cordis 5Fr 3DRC Catheter Procedure (MP) Procedure Complications No complications Procedure Medications Medication Administration Route Dosage Oxygen NC 2 l/min Heparin Flush Bag added to field 2 bags (1000units/500ml NS) Lidocaine 2% added to field 20 Versed I.V. 1 mg Fentanyl I.V. 50 mcg Versed I.V. 1 mg Fentanyl I.V. 50 mcg Heparin Bolus I.V. 4000 units Integrilin (Bolus I.V. 8.5 ml 2mg/ml) Plavix P.O. 600 mg Hemodynamics Rest HGB: 13.7 (g/dl) Heart Rate: 91 (bpm) Snapshots Pre Cath Intra NCS Post Cath Vital Signs Time Heart Resp SPO2 NIBP (mmHg) Rhythm Pain Sedation Rate (ipm) (%) Status Level (bpm) 15:26:16 93 16 99 131/89(120) NSR 0 (11) 10(A) , No pain 15:30:24 90 16 99 125/87(105) NSR 0 (11) 10(A) , No pain 15:34:28 89 18 98 132/90(110) NSR 0 (11) 10(A) , No pain 15:38:36 91 19 99 120/90(112) NSR 0 (11) 10(A) , No pain 15:42:35 91 20 98 124/94(106) NSR 0 (11) 9(A) , No pain 15:46:39 82 20 99 131/86(101) NSR 0 (11) 9(A) , No pain 15:50:49 87 22 99 117/79(101) NSR 0 (11) 10(A) , No pain Medications Time Medication Route Dose Verified Delivered Reason Notes Effectiveness by by 15:27:38 Oxygen NC 2 Breezy Zulema Per physician l/min David Stoner RN 15:27:50 Heparin Flush added 2 Breezy Breezy used for Bag to bags David Hernandez MD procedure (1000units/500ml field NS) 15:27:57 Lidocaine 2% added 20ml Breezy Breezy used for to vial David Hernandez MD procedure field 15:31:38 Versed I.V. 1 mg Breezy Zulema for sedation David Stoner RN 15:31:43 Fentanyl I.V. 50 Breezy Zulema for sedation mcg David Stoner RN 15:34:53 Versed I.V. 1 mg Breezy Zulema for sedation David Stoner RN 15:34:56 Fentanyl I.V. 50 Breezy Zulema for sedation mcg David Stoner RN 15:45:27 Heparin Bolus I.V. 4000 Breezy Zulema for dose units David Stoner RN anticoagulation verified with dr hernandez 15:47:43 Integrilin I.V. 8.5 Breezy Zulema for (Bolus 2mg/ml) ml David Stoner RN antiplatelet therapy 15:50:22 Plavix P.O. 600 Breezy Zulema for mg David Stoner RN antiplatelet therapy Procedure Log Time Note 15:00:37 Kan Juarez RN sent for patient. Start room use. 15:15:08 Admit Source: Emergency department 15:15:27 Diagnostic Cath status Urgent 15:15:45 Time tracking: Regular hours 15:15:50 Plan of Care:Hemodynamics will remain stable., Cardiac rhythm will remain stable., Comfort level will be maintained., Respiratory function will remain adequate., Patient/ family verbilizes understanding of procedure., Procedure tolerated without complication., Recovers from procedure without complications.. 15:16:01 Patient received from PCU to CCL 1 Alert and oriented. Tansferred to table in Supine position. 15:16:02 Correct patient and procedure confirmed by team. 15:16:02 Warm blankets applied, and ammon hugger turned on for patient comfort. 15:16:03 Signed procedure consent form obtained from patient. 15:16:04 ECG and BP/O2 sat monitors applied to patient. 15::24 Vital chart was started 15:26:19 Baseline sample Acquired. 15::23 Rhythm: sinus rhythm 15::24 Full Disclosure recording started 15::30 Pre-procedure instructions explained to patient. 15:26:30 H&P Date Dictated: 05/15/2016 Within 30 days and on chart.. 15::31 Pre-op teaching completed and patient verbalized understanding. 15::32 Family in waiting room. 15::33 Patient NPO since Midnight. 15:26:36 Is the patient allergic to Iodine/contrast media? No. 15:26:54 Patient allergic to Other allergyFLU VACCINE 15:27:04 Patient allergic to Penicillins 15:27:08 Patient allergic to Sulfa drugs 15:27:12 Is patient on blood thinner?No 15:27:16 ACC The patient was administered the following blood thiners within the last 24 hours: None 15:27:18 Patient diabetic? Yes. 15:27:19 If diabetic: On Metformin? Yes 15::38 Oxygen 2 l/min NC was given by Zulema Stoner RN; Per physician; 15:27:50 Heparin Flush Bag (1000units/500ml NS) 2 bags added to field was given by Breezy Hernandez MD; used for procedure; 15:27:57 Lidocaine 2% 20ml vial added to field was given by Breezy Hernandez MD; used for procedure; 15:29:10 Last Metformin dose is unknown 15:29:20 Previous problem with sedation/anesthesia? No ? 15:29:21 Snore? Yes 15:29:23 Sleep apnea? No 15:29:24 Deviated septum? No 15:29:25 Sticks out tongue? Yes 15:29:25 Opens mouth fully? Yes 15:29:27 Airway obstruction? No ? 15:29:29 Dentures? No ? 15:29:39 Pre procedure: right dorsailis pedis pulse 1+ Palpable, but thready & weak; easily obliterated 15:29:41 Patient pain scale 0/10 ?. 15:29:57 IV patent on arrival in left antecubital with 0.9% NaCl at [facility]. 15:30:38 Lab Result : Hemoglobin 13.7 g/dl 15:30:38 Lab Result : Hematocrit 39.9 % 15:30:38 Lab Result : BUN 12 mg/dl 15:30:38 Lab Result : Creatinine 0.9 mg/dl 15:30:42 Lab results completed and on chart. 15:30:45 Bilateral groins area was prepped with chlora-prep and draped in sterile fashion 15:30:47 Sharps counted by scrub and verified by R.N. 15:30:47 Alarms reviewed by R. N. 15:30:50 Use device set Femoral Dx 15:30:53 Tegaderm 4 x 4 opened to sterile field. 15:30:54 Acist Syringe opened to sterile field. 15:30:55 Cardinal Cath Pack opened to sterile field. 15:30:55 Bag Decanter opened to sterile field. 15:30:56 St Mauri 260cm J .035 wire opened to sterile field. 15:30:56 Terumo 5Fr [place] Sheath opened to sterile field. 15:30:57 Acist Hand Control opened to sterile field. 15:30:58 Acist Manifold opened to sterile field. 15:31:00 Cordis Infinity 5Fr Multipack catheter opened to sterile field. 15:31:11 --------ALL STOP TIME OUT------ 15:31:12 Final Timeout: patient, procedure, and site verified with staff and physician. All members of the team are in agreement. 15:31:14 Bilateral groins site verified by team. 15:31:17 Physical assessment completed. ASA score P 2 - A patient with mild systemic disease as per Breezy Hernandez MD. 15:31:23 Sedation plan: IV Moderate Sedation Versed, Fentanyl 15::38 Versed 1 mg I.V. was given by Zulema Stoner RN; for sedation; 15:31:43 Fentanyl 50 mcg I.V. was given by Zulema Stoner RN; for sedation; 15:33:53 Procedure type changed to Cath procedure, Diagnostic procedure, LHC, LHC w/Coronaries, PCI procedure, Coronary Stent Initial, Peripheral Cath Diagnostic Procedure, Cath Peripheral, Dxfjq-Advqosj-Hkf-Off 15:34:12 ACC Patient presents with Unstable Angina CCS Anginal Class 3--Marked limitation of physical activity, angina occurs with ordinary activity.. 15:34:53 Versed 1 mg I.V. was given by Zulema Stoner RN; for sedation; 15:34:56 Fentanyl 50 mcg I.V. was given by Zulema Stoner RN; for sedation; 15:35:08 Zero performed for pressure channel P1 15:35:12 Zero performed for pressure channel P1 15:35:24 Zero performed for pressure channel P1 15:35:38 Zero performed for pressure channel P1 15:35:44 Zero performed for pressure channel P1 15:35:55 Zero performed for pressure channel P1 15:36:28 Zero performed for pressure channel P1 15:36:31 Zero performed for pressure channel P1 15:36:35 Zero performed for pressure channel P1 15:36:43 Zero performed for pressure channel P1 15:37:11 Procedure started. 15:37:15 Local anesthetic to right femoral artery with Lidocaine 2% by Breezy Hernandez MD.INITIAL ACCESS ONLY 15:37:31 A 5 Fr sheath was inserted into the Right Femoral artery 15:37:41 A Cordis 5Fr Pigtail Catheter (MP) was advanced over the wire and used for Procedure. 15:38:02 LV gram done using DALTON 15:38:07 Injector settings: Ml/sec: 10, Volume: 20, 15:38:32 EF : 20 % 15:38:53 Abdominal angiogram w/ runoff was performed. 15:39:54 Left leg runoff performed. 15:40:20 Right leg runoff performed. 15:40:48 Catheter exchanged over wire. 15:41:07 A Cordis 5Fr JL 4.0 Catheter (MP) was advanced over the wire and used for Procedure. 15:41:39 LCA angiography performed. 15:42:13 Terumo 6Fr [place] Sheath opened to sterile field. 15:42:14 Hamlin Whisper J 300cm 0.014 guide wire opened to sterile field. 15:42:15 [employer] BasixCompak Inflation Kit opened to sterile field. 15:43:01 Catheter exchanged over wire. 15:43:06 A Cordis 5Fr 3DRC Catheter (MP) was advanced over the wire and used for Procedure. 15:43:37 RCA angiography performed. 15:44:38 Proceeding to intervention. 15:44:41 Catheter removed. 15:44:50 Sheath upsized to a 6 Fr Short. 15:45:27 Heparin Bolus 4000 units I.V. was given by Zulema Stoner RN; for anticoagulation; dose verified with dr hernandez 15:45:48 ACC PCI Site: [facility] has 75% stenosis. 15:45:50 ACC Pre-intervention EUGENIO Flow is 1. 15:46:08 Cordis 6FR XBLAD 3.5 guide catheter opened to sterile field. 15:46:17 6 Fr xblad 3.5 guide catheter was inserted over the wire 15:46:25 whisper wire advanced. 15:46:57 Wire advanced across lesion. 15:47:43 Integrilin (Bolus 2mg/ml) 8.5 ml I.V. was given by Zulema Stoner RN; for antiplatelet therapy; 15:48:03 Inflation Number: 1 A [employer] Advertising[employer] Integrity 3.5 X 22 stent was prepped and advanced across the Mid CX. The stent was deployed at 11 MANPREET for 0:10 (min:sec). 15:48:15 Wire removed. 15:48:15 Stent catheter was removed intact over wire. 15:48:16 Guide catheter removed. 15:49:05 Vascade 6/7 Fr Closure Device opened to sterile field. 15:49:25 Sheath removed intact; hemostasis achieved with Vascade Closure System to the Right Femoral artery. 15:49:27 Procedure ended.(Physican Out) 15:49:34 Fluoroscopy time 02.70 minutes. 15:49:44 Fluoroscopy dose: 1045 mGy 15:49:44 Flurop Dose total: 1045 15:49:50 Contrast amount:Isovue 300 154ml. 15:49:52 Sharps counted by scrub and verified by R.N. 15:49:58 Insertion/operative site no bleeding no hematoma. 15:50:01 Post-op/insertion site Right Femoral artery dressed using a 4 x 4 and Tegaderm. 15:50:05 Post right femoral artery:stable, soft, clean and dry 15:50:09 Post Procedure Pulses reassessed and unchanged 15:50:11 Post-procedure physical assessment completed. ASA score P 2 - A patient with mild systemic disease as per Breezy Hernandez MD. 15:50:14 Post procedure rhythm: unchanged. 15:50:17 Estimated blood loss: 10 ml 15:50:18 Patient needs reinforcement of post procedure teaching. 15:50:18 Post procedure instruction explained to patient.Patient verbalizes understanding. 15:50:22 Plavix 600 mg P.O. was given by Zulema Stoner RN; for antiplatelet therapy; 15:50:43 Procedure and supply charges have been captured, reviewed, submitted and are correct. 15:50:45 Procedure Complication : No complications 15:50:47 Vital chart was stopped 15:50:48 See physician's report for complete and final results. 15:50:49 Report given to PCU. 15:50:54 Patient transfered to PCU with Stretcher. 15:51:12 Full Disclosure recording stopped 15:51:12 Procedure ended. 15:52:52 ACC-PCI Only Patient was given prescriptions, or instructed by Breezy Hernandez MD to start/continue the following medications upon discharge: Plavix 15:52:53 End room use (Document Last) 15:55:07 St Mauri Femstop Arch Gold opened to sterile field. 15:57:12 Femstop placed over the right femoral artery at 0 mmHg. Hemostasis achieved. Intervention Summary Intervention Notes Time ActionType Lesion and Equipment Action# Pressure Duration Attributes Used 15:48:03 Place stent Mid CX Medtronic 1 11 00:10 Integrity 3.5 X 22 stent Device Usage Item Name Manufacture Quantity Catalog Hospital Part Current Minima l Lot# / Number Charge Number Stock Stock Serial# Code Tegaderm 4 1 [id number] [id number] 396763 5 x 4 Acist Acist 1 62141 950399 851130 675383 20 Syringe Medical Systems Inc Bag Microtek 1 2002S 730418 31051 972783 5 Dec[employer] Medical Inc. Cardinal Cardinal [address] 737135 90958 140493 5 Cath Pack Health Terumo 5Fr Terumo 1 [id number] 012977 264907 394308 [address] St Mauri 1 [id number] 389183 747804 823107 30 260cm J .035 wire Acist Hand Acist 1 31592 124314 351115 604808 5 Control Medical Systems Inc Acist Acist 1 35438 979475 931427 272406 5 Manifold Medical Systems Inc Cordis Cardinal 1 [id number] 278069 00436 407638 30 Infinity Health 5Fr Multipack catheter Cordis 5Fr Cardinal 1 324605 5 Pigtail Health Catheter (MP) Cordis 5Fr Cardinal 1 [id number] 5 JL 4.0 Health Catheter (MP) Terumo 6Fr Terumo 1 [id number] 847278 013018 143304 40 [place] Sheath Hamlin Hamlin 1 [id number] 133766 974242 424979 5 Whisper J Vascular 300cm 0.014 guide wire [facility] 1 [id number] 119388 590535 645682 15 BasixCompak Medical Inflation Kit Cordis 5Fr Cardinal 1 120688 5 3DRC Health Catheter (MP) Cordis 6FR Cardinal 1 [id number] 179291 795844 508898 10 XBLAD 3.5 Health guide catheter Medtronic Medtronic 1 [id number] 197212 859292 4 [id number] Integrity 3.5 X 22 stent Vascade 10/15 Cardiva 1 [id number] 771451 981528 927187 5 Fr Closure Medical, Device Inc. St Mauri St Mauri 1 [id number] 418391 946371 115582 5 Femstop Arch Gold Signature Audit [place] Stage Time Signature Unsigned Intra-Procedure 05/15/2016 Jose A Reynaga 3:59:36 PM RT(R) Signatures Monitor : Sander Elena RT Signature : Date : Time : [facility] [address] [place] [address]
--- NOTE | ~2016-05-14 | HEMODYNAMI ---
PATIENT:JOAQUINA MCKEON MEDICAL RECORD: [id number] : 54 LOCATION[id number] ADMISSION DATE: 05/15/16 Generatedon:05/16/201616:01 Patient name: JOAQUINA MCKEON Patient #: [id number] SSN: : 1950 Date of study: 05/16/2016 Page: Of Hemodynamic Procedure Report Patient Data Patient Demographics Procedure consent was obtained First Name: JOAQUINA Gender: Male Last Name: MIKE : 1950 Patient #: [id number] Age: 66 year(s) Race: Additional ID: [id number] Contact details Address: [address] [place] [address] State: [place] City: [facility] Zip code: [address] Past Medical History Allergies Allergen Reaction Date Comments Reported Other 05/15/2016 FLU VACCINE allergy Penicillins 05/15/2016 Sulfa drugs 05/15/2016 Other 05/16/2016 influenza virus allergy vaccines,sulfa,penicillin. Admission Admission Data Admission Date: 05/15/2016 Admission Time: 18:07 Arrival Date: 05/15/2016 Arrival Time: 18:07 Admit Source: Emergency Insurance Payor: Medicaid department Room #: D.2119 Height (in.): 70 BSA: 2.11 (m2) Height (cm.): 177.8 BMI: 29.51 (kg/m2) Weight (lbs.): 205.69 Weight (kg.): 93.3 Lab Results Lab Result Date: 05/16/2016 Lab Result Time: 4:30 Biochemistry Name Units Result Min Max BUN mg/dl 26 --(----)-* 7 18 Creatinine mg/dl 1.3 --(---*)-- 0.6 1.3 CBC Name Units Result Min Max Hematocrit % 38.4 *-(----)-- 42 54 Hemoglobin g/dl 11.9 *-(----)-- 13.5 17.5 Procedure Procedure Types Cath Procedure Diagnostic Procedure [facility] PCI Procedure Coronary Stent Initial Procedure Description Procedure Date Procedure Date: 05/16/2016 Procedure Start Time: 15:32 Procedure End Time: 15:53 Procedure Staff Name Function Breezy Hernandez MD Performing Physician Peggy Hendricks RT Scrub Cassi Church RT Monitor Zulema Stoner RN Nurse Procedure Data Cath Procedure Fluoroscopy Diagnostic fluoroscopy Total fluoroscopy Time: 9.2 time: 9.2 min min Diagnostic fluoroscopy Total fluoroscopy dose: dose: 1495 mGy 1495 mGy Contrast Material Contrast Material Type Amount (ml) Isovue 370 178 Entry Location Entry Primary Successful Side Size Upsize Upsize Entry Closure Succes sful Closure Location (Fr) 1 (Fr) 2 (Fr) Remarks Device Remarks Femoral Left 7 Fr Exoseal artery Short Estimated blood loss: 5 ml Procedure Complications No complications Procedure Medications Medication Administration Route Dosage Oxygen NC 2 l/min Lidocaine 2% added to field 20 Heparin Flush Bag added to field 2 bags (1000units/500ml NS) 0.9% NaCl I.V. 100 ml/hr Versed I.V. 1 mg Fentanyl I.V. 50 mcg Versed I.V. 1 mg Fentanyl I.V. 50 mcg Heparin Bolus I.V. 4000 units Nitroglycerin IC/IA I.C. 200 mcg Hemodynamics Rest BSA: 2.11 (m2) HGB: 11.9 (g/dl) O2 Consumption: Estimated: 254.1 (ml/min) O2 Con sumption indexed: Estimated:120.43 (ml/min/m) Heart Rate: 80 (bpm) Snapshots Pre Cath Intra NCS Post Cath Vital Signs Time Heart Resp SPO2 NIBP (mmHg) Rhythm Pain Sedation Rate (ipm) (%) Status Level (bpm) 15:10:46 71 22 99 134/84(107) NSR 0 (11) 10(A) , No pain 15:14:56 89 20 98 102/77(88) NSR 0 (11) 10(A) , No pain 15:18:56 72 20 97 116/73(106) NSR 0 (11) 10(A) , No pain 15:23:00 75 20 96 111/75(88) NSR 0 (11) 10(A) , No pain 15:27:04 76 20 96 107/70(89) NSR 0 (11) 10(A) , No pain 15:31:03 83 24 95 107/75(87) NSR 0 (11) 10(A) , No pain 15:35:07 77 22 95 92/66(79) NSR 0 (11) 9(A) , No pain 15:39:05 73 20 96 101/68(83) NSR 0 (11) 9(A) , No pain 15:43:08 68 22 98 100/62(83) NSR 0 (11) 9(A) , No pain 15:47:08 72 20 96 109/70(86) NSR 0 (11) 9(A) , No pain 15:51:10 73 26 97 112/76(93) NSR 0 (11) 10(A) , No pain Medications Time Medication Route Dose Verified Delivered Reason Notes Effectiveness by by 15:08:14 Oxygen NC 2 Breezy Zulema used for l/min David Stoner RN procedure 15:08:27 Lidocaine 2% added 20ml Breezy Breezy for local to vial David Hernandez MD anesthetic field 15:08:33 Heparin Flush added 2 Breezy Breezy used for Bag to bags David Hernandez MD procedure (1000units/500ml field NS) 15:08:44 0.9% NaCl I.V. 100 Breezy Zulema Per physician ml/hr David Stoner RN 15:28:29 Versed I.V. 1 mg Breezy Zulema for sedation David Stoner RN 15:28:35 Fentanyl I.V. 50 Breezy Zulema for sedation mcg David Stoner RN 15:31:02 Versed I.V. 1 mg Breezy Zulema for sedation David Stoner RN 15:31:05 Fentanyl I.V. 50 Breezy Zulema for sedation mcg David Stoner RN 15:32:38 Heparin Bolus I.V. 4000 Breezy Zulema for dose units David Stoner RN anticoagulation verified wt dr hernandez 15:44:38 Nitroglycerin I.C. 200 Breezy Alcalarey for IC/IA mcg David Hernandez MD vasodilation Procedure Log Time Note 14:40:34 Kan Juarez RN sent for patient. Start room use. 15:01:56 Informed consent obtained and on chart 15:02:44 Time tracking: Regular hours 15:02:47 Plan of Care:Hemodynamics will remain stable., Cardiac rhythm will remain stable., Comfort level will be maintained., Respiratory function will remain adequate., Patient/ family verbilizes understanding of procedure., Procedure tolerated without complication., Recovers from procedure without complications.. 15:02:52 Patient received from Med II to CCL 1 Alert and oriented. Tansferred to table in Supine position. 15:02:53 Warm blankets applied, and ammon hugger turned on for patient comfort. 15:02:53 Correct patient and procedure confirmed by team. 15:02:54 ECG and BP/O2 sat monitors applied to patient. 15:04:46 H&P Date Dictated: 05/14/2016 Within 30 days and on chart.. 15:04:47 Pre-procedure instructions explained to patient. 15:04:47 Pre-op teaching completed and patient verbalized understanding. 15:06:10 Family in waiting room. 15:06:11 Patient NPO since Midnight. 15:06:42 Patient allergic to Other allergyinfluenza virus vaccines,sulfa,penicillin. 15:06:44 Is the patient allergic to Iodine/contrast media? No. 15:06:47 Is patient on blood thinner?Yes 15:06:49 ACC The patient was administered the following blood thiners within the last 24 hours: ACCPlavix 15:06:50 Patient diabetic? Yes. 15:06:52 If diabetic: On Metformin? Yes 15:07:00 Previous problem with sedation/anesthesia? No ? 15:07:02 Snore? Yes 15:07:03 Sleep apnea? No 15:07:04 Deviated septum? No 15:07:04 Opens mouth fully? Yes 15:07:06 Sticks out tongue? Yes 15:07:10 Airway obstruction? No ? 15:07:13 Dentures? No ? 15:07:19 Pre procedure: left dorsailis pedis pulse 1+ Palpable, but thready & weak; easily obliterated 15:07:21 Patient pain scale 0/10 ?. 15:07:36 IV patent on arrival in left antecubital with 0.9% NaCl at O. 15:08:14 Oxygen 2 l/min NC was given by Zulema Stoner RN; used for procedure; 15:08:27 Lidocaine 2% 20ml vial added to field was given by Breezy Hernandez MD; for local anesthetic; 15:08:33 Heparin Flush Bag (1000units/500ml NS) 2 bags added to field was given by Breezy Hernandez MD; used for procedure; 15::34 Lab Result : BUN 26 mg/dl 15::34 Lab Result : Creatinine 1.3 mg/dl 15::34 Lab Result : Hemoglobin 11.9 g/dl 15::34 Lab Result : Hematocrit 38.4 % 15:08:36 Lab results completed and on chart. 15:08:39 Left groin area was prepped with chlora-prep and draped in sterile fashion 15:: Alarms reviewed by R. N. 15:: Sharps counted by scrub and verified by R.N. 15:08:44 0.9% NaCl 100 ml/hr I.V. was given by Zulema Stoner RN; Per physician; 15::47 Use device set Femoral PCI 15:08:49 Tegaderm 4 x 4 opened to sterile field. 15:08:49 Acist Manifold opened to sterile field. 15:08:50 Merit BasixCompak Inflation Kit opened to sterile field. 15:08:51 Acist Syringe opened to sterile field. 15:08:51 Acist Hand Control opened to sterile field. 15:08:52 Bag Decanter opened to sterile field. 15:08:52 Cardinal Cath Pack opened to sterile field. 15:08:53 St Mauri 260cm J .035 wire opened to sterile field. 15:09:07 Patient Height : 177.8 cm 15:09:12 Patient Weight : 93.3 kg 15:09:18 Insurance Payor : Medicaid 15:09:38 ACC Patient presents with Unstable Angina CCS Anginal Class 3--Marked limitation of physical activity, angina occurs with ordinary activity.. 15:09:41 Vital chart was started 15::43 Baseline sample Acquired. 15::48 Rhythm: sinus rhythm 15::49 Full Disclosure recording started 15:10:37 Terumo 7Fr [place] Sheath opened to sterile field. 15:15:58 Arrival Date: 05/15/2016 6:07:00 PM 15:20:03 Zero performed for pressure channel P1 15:27:47 Physician arrived 15:27:48 --------ALL STOP TIME OUT------ 15:27:49 Final Timeout: patient, procedure, and site verified with staff and physician. All members of the team are in agreement. 15:27:55 Left groin site verified by team. 15:27:58 Physical assessment completed. ASA score P 2 - A patient with mild systemic disease as per Breezy Hernandez MD. 15:28:02 Sedation plan: IV Moderate Sedation Versed, Fentanyl 15::29 Versed 1 mg I.V. was given by Zulema Stoner RN; for sedation; 15::35 Fentanyl 50 mcg I.V. was given by Zulema Stoner RN; for sedation; 15:: Procedure started. 15:: Versed 1 mg I.V. was given by Zluema Stoner RN; for sedation; 15:31:05 Fentanyl 50 mcg I.V. was given by Zulema Stoner RN; for sedation; 15::29 Medtronic Launcher 7Fr EBU 3.5 guide catheter opened to sterile field. 15:31:40 Medford Kloud Angels Choice PT Extra Support J 300cm .014 gu opened to sterile field. 15:32:07 Local anesthetic to left femerol artery with Lidocaine 2% by Breezy Hernandez MD.INITIAL ACCESS ONLY 15:32:18 A 7 Fr Short sheath was inserted into the Left Femoral artery 15:32:27 7 Fr ebu 3.5 guide catheter was inserted over the wire 15:32:36 whisper wire advanced. 15:32:38 Heparin Bolus 4000 units I.V. was given by Zulema Stoenr RN; for anticoagulation; dose verified wt dr hernandez 15:34:30 Inflation number: 1 A Medford Sci Custer 1.5 X 20 balloon was prepped and advanced across the Mid LAD, then inflated to 17 MANPREET for 0:10 (min:sec). 15:34:36 Inflation number: 2 The Medford Sci Custer 1.5 X 20 balloon was reinflated across the Mid LAD, to 17 MANPREET for 0:10 (min:sec). 15:34:56 Inflation number: 3 The [place] Sci Custer 1.5 X 20 balloon was reinflated across the Mid LAD, to 17 MANPREET for 0:10 (min:sec). 15:35:11 Balloon removed over the wire. 15:36:48 Inflation number: 4 A Medford Sci Custer 2.5 X 30 balloon was prepped and advanced across the Mid LAD, then inflated to 7 MANPREET for 0:10 (min:sec). 15:37:05 Inflation number: 5 The Medford Sci Custer 2.5 X 30 balloon was reinflated across the Mid LAD, to 7 MANPREET for 0:10 (min:sec). 15:37:23 Inflation number: 6 The [place]ford Sci Custer 2.5 X 30 balloon was reinflated across the Mid LAD, to 7 MANPREET for 0:10 (min:sec). 15:37:47 Inflation number: 7 The [place]ford Sci Custer 2.5 X 30 balloon was reinflated across the Mid LAD, to 13 MANPREET for 0:10 (min:sec). 15:38:09 Balloon removed over the wire. 15:39:44 Inflation Number: 8 A Medtronic Resolute 2.25 X 30 stent was prepped and advanced across the Mid LAD. The stent was deployed at 13 MANPREET for 0:10 (min:sec). 15:40:15 Stent catheter was removed intact over wire. 15:41:42 Inflation Number: 9 A Medtronic Resolute 2.25 X 30 stent was prepped and advanced across the Mid LAD. The stent was deployed at 13 MANPREET for 0:10 (min:sec). 15:42:42 Stent catheter was removed intact over wire. 15:44:15 Inflation Number: 10 A Medtronic Resolute 3.0 X 38 stent was prepped and advanced across the Mid LAD. The stent was deployed at 13 MANPREET for 0:10 (min:sec). 15:44:38 Nitroglycerin IC/IA 200 mcg I.C. was given by Breezy Hernandez MD; for vasodilation; 15:47:37 Inflation number: 11 The [place] Sci Custer 1.5 X 20 balloon was reinflated across the Mid LAD, to 17 MANPREET for 0:10 (min:sec). 15:48:10 Inflation number: 12 The Medford Sci Custer 1.5 X 20 balloon was reinflated across the Mid LAD, to 21 MANPREET for 0:10 (min:sec). 15:49:41 Balloon removed over the wire. 15:49:41 Wire removed. 15:49:42 Guide catheter removed. 15:50:27 Cordis 7Fr Exoseal opened to sterile field. 15:50:53 Sheath removed intact; hemostasis achieved with Exoseal to the Left Femoral artery. 15:50:58 Procedure ended.(Physican Out) 15:51:09 Fluoroscopy time 09.20 minutes. 15:51:21 Flurop Dose total: 1495 15:51:21 Fluoroscopy dose: 1495 mGy 15:51:26 Contrast amount:Isovue 370 178ml. 15:51:28 Sharps counted by scrub and verified by R.N. 15:51:30 Insertion/operative site no bleeding no hematoma. 15:51:32 Post-op/insertion site Left Femoral artery dressed using a 4 x 4 and Tegaderm. 15:51:36 Post left femerol artery:stable 15:51:38 Post Procedure Pulses reassessed and unchanged 15:51:40 Post procedure rhythm: unchanged. 15:51:43 Estimated blood loss: 5 ml 15:51:44 Post procedure instruction explained to patient.Patient verbalizes understanding. 15:51:45 Patient needs reinforcement of post procedure teaching. 15:51:54 Procedure type changed to Cath procedure, Diagnostic procedure, LHC, PCI procedure, Coronary Stent Initial 15:51:55 Procedure and supply charges have been captured, reviewed, submitted and are correct. 15:51:59 Procedure Complication : No complications 15:52:05 Vital chart was stopped 15:52:06 See physician's report for complete and final results. 15:52:46 Report given to [facility]. 15:53:01 Patient transfered to [facility] with Stretcher. 15:53:03 Procedure ended. 15:53:03 Full Disclosure recording stopped 15:53:13 ACC-PCI Only Patient was given prescriptions, or instructed by Breezy Hernandez MD to start/continue the following medications upon discharge: Plavix 15:53:15 End room use (Document Last) Intervention Summary Intervention Notes Time ActionType Lesion and Equipment Action# Pressure Duration Attributes Used 15:34:30 Inflate Mid LAD Medford 1 17 00:10 balloon Sci Custer 1.5 X 20 balloon 15:34:36 Reinflate Mid LAD Medford 2 17 00:10 balloon Sci Custer 1.5 X 20 balloon 15:34:56 Reinflate Mid LAD Medford 3 17 00:10 balloon Sci Custer 1.5 X 20 balloon 15:36:48 Inflate Mid LAD Medford 4 7 00:10 balloon Sci Custer 2.5 X 30 balloon 15:37:05 Reinflate Mid LAD Medford 5 7 00:10 balloon Sci Custer 2.5 X 30 balloon 15:37:23 Reinflate Mid LAD Medford 6 7 00:10 balloon Sci Custer 2.5 X 30 balloon 15:37:47 Reinflate Mid LAD Medford 7 13 00:10 balloon Sci Custer 2.5 X 30 balloon 15:39:44 Place stent Mid LAD Medtronic 8 13 00:10 Resolute 2.25 X 30 stent 15:41:42 Place stent Mid LAD Medtronic 9 13 00:10 Resolute 2.25 X 30 stent 15:44:15 Place stent Mid LAD Medtronic 10 13 00:10 Resolute 3.0 X 38 stent 15:47:37 Reinflate Mid LAD Medford 11 17 00:10 balloon Sci Custer 1.5 X 20 balloon 15:48:10 Reinflate Mid LAD Medford 12 21 00:10 balloon Sci Custer 1.5 X 20 balloon Device Usage Item Name Manufacture Quantity Catalog Number Hospital Part Current Mini mal Lot# / Charge Number Stock Stock Serial# Code Tegade 4 1 [id number] 5 x 4 Acist Acist 1 84977 199312 028045 993843 5 Manifold Medical Systems Inc Merit Merit 1 [id number] 268628 558758 [id number] 15 BasixCompak Medical Inflation Kit Acist Acist 1 21124 115045 609244 331765 20 Syringe Medical Systems Inc Acist Hand Acist 1 06851 705207 283739 727443 5 Control Medical Systems Inc Bag Microtek 1 2002S 622895 75893 901200 5 Decanter Medical Inc. Cardinal Cardinal [address] 587000 40314 997797 [address] [facility] [address] [facility] St Mauri 1 346467 531016 818405 590522 30 260cm J .035 wire Terumo 7Fr Terumo 1 [id number] 715046 921302 723482 5 [place] Sheath Medtronic Medtronic 1 [id number] 340234 961504 966241 0 Launcher 7Fr EBU 3.5 guide catheter Medford Sci Medford 1 [id number] 999671 279829 837491 5 Choice PT Scientific Extra Support J 300cm .014 gu Medford Sci Medford 1 [id number] 320725 157687 788418 1 [id number] Custer Scientific 1.5 X 20 balloon Medford Sci Medford 1 [id number] 930334 538105 830303 1 [id number] Custer Scientific 2.5 X 30 balloon Medtronic Medtronic 2 [id number] 285990 115674 1 [id number] Resolute [id number] 2.25 X 30 stent Medtronic Medtronic 1 [id number] 291991 802780 0 [id number] Resolute 3.0 X 38 stent Cordis 7Fr Cardinal 1 EX700 957165 717208 403453 5 [facility] Signature Audit [place] [facility] Time Signature Unsigned Intra-Procedure 05/16/2016 Cassi Church 4:01:47 PM RT(R) Signatures Monitor : Cassi Church RT Signature : Date : Time : [facility] [address] [id number]
[2016-05-14 15:17] LABS: BASOPHILS 0.6 % (0.0-2.0); EOSINOPHILS 1.7 % (0-7); HEMATOCRIT 42.1 % (42.0-54.0); HEMOGLOBIN 13.4 g/dL (13.5-17.5); IMMATURE GRANULOCYTES 0.3 % (0-5); LYMPHOCYTES 17.8 % (15-50); MCH 29.8 pg (26.0-34.0); MCHC 31.8 g/dL (31.0-37.0); MCV 93.6 fL (80.0-100.0); MEAN PLATELET VOLUME 10.4 fL (7.4-10.4); MONOCYTES 6.1 % (2-11); NEUTROPHILS 73.5 % (40-80); PLATELET COUNT 306 10x3/uL (130-400); RDW 14.5 % (11.5-14.5); WBC 6.4 10x3/uL (4.8-10.8)
[2016-05-14 15:44] LABS: ALBUMIN 2.3 g/dL (3.4-5.0); ALKALINE PHOSPHATASE 71 U/L (46-116); ALT (SGPT) 22 U/L (10-68); BILIRUBIN - TOTAL 0.75 mg/dL (0.2-1.3); CALC OSMOLALITY 284 mosm/kg (275-300); CALCIUM 9.4 mg/dL (8.5-10.1); CARBON DIOXIDE 35.1 mmol/L (21.0-32.0); CHLORIDE - SERUM 99 mmol/L (98-107); CREATININE - SERUM 1.4 mg/dL (0.6-1.3); GLUCOSE 128 mg/dL (74-106); POTASSIUM - SERUM 4.1 mmol/L (3.5-5.1); PROTEIN - SERUM 7.9 g/dL (6.4-8.2); SODIUM 140 mmol/L (136-145); UREA NITROGEN 25 mg/dL (7-18); eGFR NON AFRICAN AMERICAN 54 mL/min (90-120)
[2016-05-14 15:59] LABS: CKMB 1.6 U/L (0.0-3.6); CREATINE KINASE 53 UL (21-232)
[2016-05-14 16:07] LABS: TROPONIN-I 0.166 ng/mL (0.000-0.060)
[2016-05-14 18:34] LABS: ALBUMIN 2.2 g/dL (3.4-5.0); BILIRUBIN - DIRECT 0.26 mg/dL (0.00-0.30); BILIRUBIN - INDIRECT 0.47 mg/dL (0.00-1.00); BILIRUBIN - TOTAL 0.73 mg/dL (0.2-1.3); PROTEIN - SERUM 7.4 g/dL (6.4-8.2)
[2016-05-14 18:55] LABS: CKMB 1.8 U/L (0.0-3.6); CREATINE KINASE 63 UL (21-232)
[2016-05-14 19:00] LABS: TROPONIN-I 0.149 ng/mL (0.000-0.060)
[2016-05-14 20:00] VITALS: BP 119/77
[2016-05-14 23:59] LABS: CKMB 1.3 U/L (0.0-3.6); CREATINE KINASE 50 UL (21-232); TROPONIN-I 0.159 ng/mL (0.000-0.060)
[2016-05-15] VITALS: BP 100/66
--- NOTE | 2016-05-15 03:55 | NUR ---
GEOGRAPHIC INFORMATION SYSTEMS DIRECTOR AT BEDSIDE TO OBTAIN VITALS, CALL LIGHT IN REACH. WILL CONTINUE WITH PLAN OF CARE.
[2016-05-15 04:00] VITALS: BP 102/68
[2016-05-15 06:58] LABS: CKMB 1.4 U/L (0.0-3.6); CREATINE KINASE 40 UL (21-232)
[2016-05-15 07:02] LABS: TROPONIN-I 0.142 ng/mL (0.000-0.060)
--- NOTE | 2016-05-15 07:30 | NUR ---
RECEIVED PT IN BED EYES CLOSED RESP UNLABORED NAD NOTED
[2016-05-15 08:14] VITALS: BP 136/67
[2016-05-15 08:52] LABS: BASOPHILS 0.4 % (0.0-2.0); EOSINOPHILS 1.3 % (0-7); HEMATOCRIT 39.3 % (42.0-54.0); HEMOGLOBIN 12.3 g/dL (13.5-17.5); IMMATURE GRANULOCYTES 0.4 % (0-5); LYMPHOCYTES 20.8 % (15-50); MCH 29.1 pg (26.0-34.0); MCHC 31.3 g/dL (31.0-37.0); MCV 92.9 fL (80.0-100.0); MEAN PLATELET VOLUME 11.4 fL (7.4-10.4); NEUTROPHILS 68.1 % (40-80); PLATELET COUNT 334 10x3/uL (130-400); RBC 4.23 10x6/uL (4.20-6.10); RDW 14.6 % (11.5-14.5); WBC 5.6 10x3/uL (4.8-10.8)
[2016-05-15 09:04] LABS: ANION GAP 13.1 mmol/L (8-16); CALCIUM 9.2 mg/dL (8.5-10.1); CARBON DIOXIDE 29.2 mmol/L (21.0-32.0); CREATININE - SERUM 1.3 mg/dL (0.6-1.3); POTASSIUM - SERUM 4.3 mmol/L (3.5-5.1)
[2016-05-15 12:40] VITALS: BP 142/76
[2016-05-15 13:23] VITALS: Ht 177.8 cm; Wt 98.8 kg
--- NOTE | 2016-05-15 15:10 | NUR ---
PT TO ROCK DUST SPRAYER VIA BED IN STABLE CONDITION
[2016-05-15 16:57] VITALS: BP 128/85
[2016-05-15 20:17] VITALS: BP 97/76
[2016-05-15] MEDS ORDERED: PROVENTIL/2.5 MG/3 M INH (20:48)
--- NOTE | 2016-05-15 20:49 | NUR ---
HOME MED REC UPDATED PER FAMILY REQUEST. STATES HE WAS TAKING ALBUTEROL UPDRAFTS AT LAST ADMISSION, BUT INSURANCE DENIED THIS MED SO HE HASN'T BEEN TAKING IT AT HOME.
[2016-05-16 04:00] VITALS: BP 115/74
--- NOTE | 2016-05-16 05:31 | NUR ---
CALL LIGHT IN REACH. WILL CONTINUE WITH PLAN OF CARE.
[2016-05-16 06:00] LABS: ANION GAP 7.5 mmol/L (8-16); CALCIUM 9.1 mg/dL (8.5-10.1); CARBON DIOXIDE 32.5 mmol/L (21.0-32.0); CREATININE - SERUM 1.3 mg/dL (0.6-1.3)
--- NOTE | 2016-05-16 07:30 | NUR ---
RECEIVED PT IN BED EYES CLOSED RESP UNLABORED NAD NOTED
[2016-05-16 08:00] VITALS: BP 128/78
[2016-05-16 08:25] LABS: BASOPHILS 0.3 % (0.0-2.0); HEMATOCRIT 38.4 % (42.0-54.0); HEMOGLOBIN 11.9 g/dL (13.5-17.5); IMMATURE GRANULOCYTES 0.3 % (0-5); LYMPHOCYTES 17.4 % (15-50); MCV 93.7 fL (80.0-100.0); MEAN PLATELET VOLUME 11.2 fL (7.4-10.4); MONOCYTES 5.3 % (2-11); NEUTROPHILS 75.7 % (40-80); RDW 14.9 % (11.5-14.5)
[2016-05-16 08:32] LABS: PLATELET COUNT 84 10x3/uL (130-400); WBC 7.8 10x3/uL (4.8-10.8)
[2016-05-16 08:44] LABS: PLATELET ESTIMATE DECREASED
--- NOTE | 2016-05-16 10:45 | NUR ---
PT TO FAMILY MEDICINE PHYSICIAN ASSISTANT VIA BED IN STABLE CONDITION
--- NOTE | 2016-05-16 11:53 | NUR ---
FSBS 117
[2016-05-16 12:00] VITALS: BP 104/66
--- NOTE | 2016-05-16 16:00 | NUR ---
RECEIVED PT BACK FROM MASTER YACHT FEMSTOP TO LT GROIN VSS NAD NOTED
--- NOTE | 2016-05-16 16:23 | NUR ---
FSBS 106
--- NOTE | 2016-05-16 19:00 | NUR ---
RECEIVED REPORT AND ASSUMED PT CARE FROM DAY SHIFT NURSE @ THIS TIME.
[2016-05-16 21:00] VITALS: BP 98/59
[2016-05-17 00:42] VITALS: BP 94/61
[2016-05-17 05:03] LABS: BASOPHILS 0.6 % (0.0-2.0); EOSINOPHILS 2.8 % (0-7); HEMATOCRIT 37.4 % (42.0-54.0); HEMOGLOBIN 11.4 g/dL (13.5-17.5); IMMATURE GRANULOCYTES 0.3 % (0-5); LYMPHOCYTES 18.3 % (15-50); MCHC 30.5 g/dL (31.0-37.0); MCV 95.2 fL (80.0-100.0); MEAN PLATELET VOLUME 11.2 fL (7.4-10.4); MONOCYTES 8.9 % (2-11); NEUTROPHILS 69.1 % (40-80); RBC 3.93 10x6/uL (4.20-6.10); RDW 14.9 % (11.5-14.5); WBC 7.2 10x3/uL (4.8-10.8)
[2016-05-17 05:07] LABS: PLATELET COUNT 104 10x3/uL (130-400)
[2016-05-17 05:22] LABS: ANION GAP 8.7 mmol/L (8-16); CALCIUM 9.1 mg/dL (8.5-10.1); CARBON DIOXIDE 32.8 mmol/L (21.0-32.0); CREATININE - SERUM 1.4 mg/dL (0.6-1.3); POTASSIUM - SERUM 4.5 mmol/L (3.5-5.1)
[2016-05-17 07:18] VITALS: BP 116/66
[2016-05-17 08:03] VITALS: BP 122/74
--- NOTE | 2016-05-17 10:46 | NUR ---
BATH COMPLETED. DRSGS CHANGED TO BILAT. LEGS. WILL MONITOR.
[2016-05-17] MEDS ORDERED: PLAVIX75 MG PO (11:39)
[2016-05-17] MEDS ORDERED: ASPIRIN81 MG PO (11:39)
[2016-05-17] MEDS ORDERED: TOBREX5 ML LEFT EYE (11:39)
[2016-05-17] MEDS ORDERED: PROVENTIL/2.5 MG/3 M INH (11:39)
[2016-05-17] MEDS ORDERED: ELIQUIS5 MG PO (11:42)
[2016-05-17] MEDS ORDERED: PRAVACHOL20 MG PO (11:44)
[2016-05-17 12:11] VITALS: BP 108/73
--- NOTE | 2016-05-17 14:12 | NUR ---
IV AND TELEMETRY DCD. DC PLANS GIVEN. UNDERSTANDING VOICED.
--- NOTE | 2016-05-17 14:44 | NUR ---
ESCORTED TO CAR BY W/C.
--- NOTE | 2016-05-23 11:11 | OP ---
PATIENT NAME: JOAQUINA MCKEON MEDICAL RECORD: [id number] :54 LOCATION:D.M2 D.2119 ADMISSION DATE:05/15/16 SURGEON: BRANDON JAIN MD DATE OF OPERATION: 05/15/2016 PROCEDURES: 1. PTCA stent, left circumflex. 2. Left heart catheterization. 3. Selective coronary angiography. 4. Left ventriculogram. 5. Aortofemoral runoff. 6. Abdominal aortography. INDICATION: Claudication, peripheral vascular disease, angina, coronary artery disease, non-Q-wave myocardial infarction. PROCEDURE IN DETAIL: After informed consent was obtained and after detailed explanation of risks, benefits as well as alternative therapies, the patient elected to proceed with angiogram and angioplasty. The right femoral area was prepped and draped in normal sterile fashion. The right femoral artery was cannulated via modified Seldinger technique with placement of 6-Niuean sheath. All catheters exchanged through this sheath. FINDINGS: 1. Aortofemoral runoff. Abdominal aortography was performed. The catheter was pulled down for aortofemoral runoff. Abdominal aortography reveals no significant ____ aortic disease. No dissection or aneurysm formation. No renal artery stenosis. RIGHT LEG: A. Iliac: The common, internal and external iliacs have moderate irregularities, but no flow-limiting stenosis. B. Femoral system: The common, superficial and deep femoral have moderate irregularities, but no flow-limiting stenosis. C. Popliteal and infrapopliteal vessels: The popliteal is patent; however, after that the infrapopliteal vessels are relatively moderately to severely diffusely diseased. It appears that the anterior tibial is totally occluded. Two-vessel runoff through the peroneal and posterior tibial. LEFT LEG: A. Iliac: The common, internal and external iliacs have moderate irregularities, but no flow-limiting stenosis. B. Femoral system: The common, superficial and deep femoral have moderate irregularities, but no flow-limiting stenosis. C. Popliteal and infrapopliteal vessels: The popliteal is patent. Anterior tibial is totally occluded. The peroneal and posterior tibial are patent; however, diffusely diseased. Left heart catheterization, selective coronary angiography and left ventriculogram: Left ventriculogram was performed in standard 30-degree DALTON view reveals global hypokinesis throughout all segments. Overall ejection fraction 25%. SELECTIVE CORONARY ANGIOGRAPHY: 1. Left main showed no significant angiographic disease. OPERATIVE REPORT [id number] JOAQUINA MCKEON 2. Left anterior descending has a 90% stenosis proximally followed by a 99% stenosis in the mid vessel. There is a relatively large diagonal system that has a 90% stenosis proximally and then this is followed by a 99% stenosis. 3. The left circumflex is large, dominant with an 80% stenosis in the mid vessel. 4. Right coronary artery is totally occluded. This is a chronic total occlusion. The distal right coronary artery fills via left to right collaterals. PERCUTANEOUS TRANSLUMINAL CORONARY ANGIOPLASTY STENT OF THE LEFT CIRCUMFLEX: The stent used was a 3.0 x 22 mm Resolute. Result was 0% residual stenosis. OVERALL IMPRESSION: Successful percutaneous transluminal coronary angioplasty stent of the left circumflex going from 80% initial stenosis to 0% residual. PLAN: PTCA stent of the LAD and LAD diagonal in the near future. TRANSINT:[id number] Voice Confirmation ID: [id number] DOCUMENT ID: [id number] BRANDON JAIN MD at 1111 CC: [id number] DICTATION DATE: 05/16/16 1044 US MARKETING DIRECTOR: 05/16/16 1251 DIS IN 05/17/16 [facility] [address] [place] [address]
--- NOTE | 2016-05-23 11:11 | OP ---
PATIENT NAME: JOAQUINA MCKEON MEDICAL RECORD: [id number] :54 LOCATION:D.M2 D.2119 ADMISSION DATE:05/15/16 SURGEON: BRANDON JAIN MD DATE OF OPERATION: 05/16/2016 PROCEDURES: 1. PTCA stent LAD. 2. Selective coronary angiography. INDICATION: Angina and coronary artery disease. PROCEDURE IN DETAIL: After informed consent was obtained and after a detailed explanation of risks, benefits as well as alternative therapies, the patient elected to proceed with angiogram and angioplasty. The left femoral area was prepped and draped in normal sterile fashion. Left femoral artery was cannulated via modified Seldinger technique with placement of 6-Kyrgyz sheath. All catheters exchanged through this sheath. FINDINGS: The left anterior descending has multiple areas of subtotal stenosis. This was addressed with going distal to proximal, a 2.25 x 30, 2.25 X 30, 3.0 x 38 all Resolute stents. Result was 0% residual stenosis. OVERALL IMPRESSION: Successful percutaneous transluminal coronary angioplasty stent of the left anterior descending going from 99% initial stenosis to 0% residual. TRANSINT:[id number] Voice Confirmation ID: [id number] DOCUMENT ID: [id number] BRANDON JAIN MD at 1111 CC: [id number] DICTATION DATE: 05/16/16 1554 PSYCHOLOGICAL ANTHROPOLOGIST: 05/16/16 1708 DIS IN 05/17/16 [place] [address]
--- NOTE | 2016-05-23 11:11 | DS ---
PATIENT:JOAQUINA MCKEON :54 MEDICAL RECORD: [id number] DISCHARGE SUMMARY ADMISSION DATE: 05/15/16 DISCHARGE DATE: 05/17/16 DATE OF SERVICE: 05/17/2015 DIAGNOSES: 1. Angina. 2. Coronary artery disease. 3. Non-Q-wave myocardial infarction. 4. Chronic obstructive pulmonary disease. 5. Smoking history. 6. Hyperlipidemia. HOSPITAL COURSE: Mr. Mckeon presents with unstable anginal symptomatology, found to have severe 3-vessel coronary artery disease, underwent successful PTCA stent of the left circumflex and LAD. No further anginal symptomatology. He was discharged home with the addition of Plavix and Pravachol to his medical regimen as well as Coreg. He will follow up with [facility] in 1 month. TRANSINT:[id number] Voice Confirmation ID: [id number] DOCUMENT ID: [id number] BRANDON JAIN MD at 1111 CC: [id number] DICTATION DATE: 05/17/16 1029 STAIN REMOVER: 05/17/16 1039 DIS IN 05/17/[address] [address]
== END 2016-05-17 14:44 | disposition home health service (06) | DRG 247 ==
LOC: D.ER 14:53 → OBSVTIME 17:22 → D.M2 17:22 → OBSVTIME 05-15 16:00 → D.M2 05-15 18:07 → OBSVTIME 05-15 18:07 → D.M2 05-17 14:44
PROVIDERS: Emergency Medicine Emergency Medical Services; Internal Medicine Interventional Cardiology; ADMIT Family Medicine Adult Medicine
PROC: 4A023N7 Measurement of Cardiac Sampling and Pressure, Left Heart, Percutaneous Approach (ICD-10-PCS; 2016-05-15)
PROC: B2151ZZ Fluoroscopy of Left Heart using Low Osmolar Contrast (ICD-10-PCS; 2016-05-15)
PROC: B41D1ZZ Fluoroscopy of Aorta and Bilateral Lower Extremity Arteries using Low Osmolar Contrast (ICD-10-PCS; 2016-05-15)
PROC: 027034Z Dilation of Coronary Artery, One Artery with Drug-eluting Intraluminal Device, Percutaneous Approach (ICD-10-PCS; principal; 2016-05-15 12:00)
PROC: 027034Z Dilation of Coronary Artery, One Artery with Drug-eluting Intraluminal Device, Percutaneous Approach (ICD-10-PCS; 2016-05-16)
DX: I21.4 Non-ST elevation (NSTEMI) myocardial infarction (principal); I42.9 Cardiomyopathy, unspecified; I25.110 Atherosclerotic heart disease of native coronary artery with unstable angina pectoris; J44.9 Chronic obstructive pulmonary disease, unspecified; E78.5 Hyperlipidemia, unspecified; I10 Essential (primary) hypertension; H10.9 Unspecified conjunctivitis; E11.9 Type 2 diabetes mellitus without complications; D64.9 Anemia, unspecified; I50.9 Heart failure, unspecified; D69.59 Other secondary thrombocytopenia; T45.525A Adverse effect of antithrombotic drugs, initial encounter; I48.91 Unspecified atrial fibrillation

== ENCOUNTER 2016-05-21 20:01 | Inpatient (IN) | payer MEDICAID ==
[~2016-05-21] VITALS: Ht 177.8 cm; Wt 89.3 kg
--- NOTE | ~2016-05-21 | HEMODYNAMI ---
PATIENT:JOAQUINA MCKEON MEDICAL RECORD: [id number] : 54 LOCATION:[facility] [id number] ADMISSION DATE: 05/21/16 Generatedon:05/23/20168:44 Patient name: JOAQUINA MCKEON Patient #: [id number] SSN: : 1950 Date of study: 05/23/2016 Page: Of Hemodynamic Procedure Report Patient Data Patient Demographics Procedure consent was obtained First Name: JOAQUINA Gender: Male Last Name: MIKE : 1950 Patient #: [id number] Age: 66 year(s) Race: Additional ID: [id number] Contact details Address: [address] [place] [address] State: [place] City: [facility] Zip code: [address] Past Medical History Allergies Allergen Reaction Date Comments Reported Other allergy 05/15/2016 FLU VACCINE Penicillins 05/15/2016 Sulfa drugs 05/15/2016 Admission Admission Data Admission Date: 05/21/2016 Admission Time: 20:49 Admit Source: Emergency Insurance Payor: Medicaid department Room #: D.2126 Height (in.): 70 BSA: 2.08 (m2) Height (cm.): 177.8 BMI: 28.49 (kg/m2) Weight (lbs.): 198.53 Weight (kg.): 90.05 Medications upon Admission Medications Dosage Times Administered Last Remarks per Delivery Day Date and Time Aspirin Yes 05/22/2016 (any) 0:00 Clopidogrel Yes 05/22/2016 0:00 Lab Results Lab Result Date: 05/23/2016 Lab Result Time: 0:00 Biochemistry Name Units Result Min Max CK-MB ng/ml 1.2 --(-*--)-- 0 3.6 Creatinine mg/dl 1.7 --(----)-* 0.6 1.3 Troponin l ng/ml 2.575 --(----)-* 0 0.06 CBC Name Units Result Min Max Hemoglobin g/dl 12 *-(----)-- 13.5 17.5 Procedure Procedure Types Cath Procedure Diagnostic Procedure [facility] w/Coronaries PCI Procedure Coronary Stent Initial Procedure Description Procedure Date Procedure Date: 05/23/2016 Procedure Start Time: 8:17 Procedure End Time: 8:43 Procedure Staff Name Function Breezy Hernandez MD Performing Physician Jose A Reynaga RT Scrub Shaan Hutchinson RN Nurse Peggy Hendricks RT Monitor Kan Juarez RN Electrician Research Procedure Data Cath Procedure Fluoroscopy Diagnostic fluoroscopy Total fluoroscopy Time: 6.4 time: 6.4 min min Diagnostic fluoroscopy Total fluoroscopy dose: dose: 1373 mGy 1373 mGy Contrast Material Contrast Material Type Amount (ml) Isovue 300 125 Entry Location Entry Primary Successful Side Size Upsize Upsize Entry Closure Succes sful Closure Location (Fr) 1 (Fr) 2 (Fr) Remarks Device Remarks Femoral Right 6 Fr Vascade artery Short Closure System Estimated blood loss: 10 ml Diagnostic catheters Device Type Used For End Catheter Placement Cordis 5Fr Pigtail LV Angiography Catheter (MP) Cordis 5Fr JL 4.0 Left Coronary Catheter (MP) Angiography Cordis 5Fr 3DRC Catheter Right Coronary (MP) Angiography Procedure Complications No complications Procedure Medications Medication Administration Route Dosage Oxygen NC 2 l/min Benadryl I.V. 50 mg Lidocaine 2% added to field 20 Heparin Flush Bag added to field 2 bags (1000units/500ml NS) 0.9% NaCl I.V. 100 ml/hr Versed I.V. 1 mg Fentanyl I.V. 50 mcg Heparin Bolus I.V. 4000 units Versed I.V. 1 mg Fentanyl I.V. 50 mcg Nitroglycerin IC/IA I.C. 150 mcg Hemodynamics Rest BSA: 2.08 (m2) O2 Consumption: Estimated: 210.84 (ml/min) O2 Consumption indexed : Estimated:101.37 (ml/min/m) Heart Rate: 29 (bpm) Snapshots Pre Cath Intra NCS Post Cath Vital Signs Time Heart Resp SPO2 etCO2 CA7dfum NIBP (mmHg) Rhythm Pain Sedation Rate (ipm) (%) (mmHg) (mmHg) Status Level (bpm) 8:02:55 73 17 100 0 0 116/76(98) NSR 0 (11) 10(A) , No pain 8:06:59 87 18 100 0 0 118/84(99) NSR 0 (11) 10(A) , No pain 8:11:03 85 17 100 0 0 115/88(109) NSR 0 (11) 10(A) , No pain 8:15:08 84 16 100 0 0 128/81(109) NSR 0 (11) 10(A) , No pain 8:19:18 84 20 100 0 0 124/77(100) NSR 0 (11) 9(A) , No pain 8:23:26 87 28 99 0 0 121/84(105) NSR 0 (11) 9(A) , No pain 8:27:34 88 31 98 0 0 122/79(94) NSR 0 (11) 9(A) , No pain 8:31:48 86 28 96 0 0 117/64(86) NSR 0 (11) 9(A) , No pain 8:35:56 78 30 97 0 0 110/72(87) NSR 0 (11) 9(A) , No pain 8:39:59 85 31 97 0 0 111/76(95) NSR 0 (11) 10(A) , No pain Medications Time Medication Route Dose Verified Delivered Reason Notes Effectiveness by by 7:48:35 Oxygen NC 2 Breezy Buffie used for l/min David Hutchinson RN procedure 8:08:50 Benadryl I.V. 50 mg Breezy Buffie used for David Hutchinson RN procedure 8:09:01 Lidocaine 2% added 20ml Breezy Breezy for local to vial David Hernandez MD anesthetic field 8:09:09 Heparin Flush added 2 Breezy Breezy used for Bag to bags David Hernandez MD procedure (1000units/500ml field NS) 8:09:17 0.9% NaCl I.V. 100 Breezy Buffie Per physician ml/hr David Hutchinson RN 8:16:36 Versed I.V. 1 mg Breezy Buffie for sedation David Hutchinson RN 8:16:43 Fentanyl I.V. 50 Breezy Buffie for sedation mcg David Hutchinson RN 8:20:51 Heparin Bolus I.V. 4000 Breezy Buffie for verifie d units David Hutchinson RN anticoagulation with dr hernandez 8:26:04 Versed I.V. 1 mg Breezy Buffie for sedation David Hutchinson RN 8:26:08 Fentanyl I.V. 50 Breezy Garduno for sedation mcg David Hutchinson RN 8:27:51 Nitroglycerin I.C. 150 Breezy Tijerina for IC/IA mcg David Hernandez MD vasodilation Procedure Log Time Note 7:40:25 Kan Juarez RN sent for patient. Start room use. 7:40:27 Time tracking: Regular hours 7:40:31 Plan of Care:Hemodynamics will remain stable., Cardiac rhythm will remain stable., Comfort level will be maintained., Respiratory function will remain adequate., Patient/ family verbilizes understanding of procedure., Procedure tolerated without complication., Recovers from procedure without complications.. 7:43:24 ACC Patient presents with Non-STEMI CCS Anginal Class 3--Marked limitation of physical activity, angina occurs with ordinary activity.. 7:44:02 Lab Result : Troponin l 2.575 ng/ml 7:44:02 Lab Result : Hemoglobin 12 g/dl 7:44:02 Lab Result : Creatinine 1.7 mg/dl 7:44:02 Lab Result : CK-MB 1.2 ng/ml 7:44:09 Diagnostic Cath Status : Urgent 7:45:35 Admit Source: Emergency department 7:45:39 Insurance Payor : Medicaid 7:45:56 Patient Height : 70 cm 7:47:08 Patient Weight : 198.53 kg 7:48:35 Oxygen 2 l/min NC was given by Shaan Hutchinson RN; used for procedure; 7:48:39 Patient received from PCU to CCL 2 Alert and oriented. Tansferred to table in Supine position. 7:48:40 Warm blankets applied, and ammon hugger turned on for patient comfort. 7:48:40 Correct patient and procedure confirmed by team. 7:48:41 Signed procedure consent form obtained from patient. 7:48:42 ECG and BP/O2 sat monitors applied to patient. 7:48:43 Full Disclosure recording started 7:48:53 H&P Date Dictated: 05/22/2016 Within 30 days and on chart., H&P Addendum completed by physician on day of procedure. (MUST COMPLETE FOR ALL OUTPATIENTS). 7:48:54 Pre-procedure instructions explained to patient. 7:48:55 Pre-op teaching completed and patient verbalized understanding. 7:48:56 Family in waiting room. 7:49:00 Patient NPO since Midnight. 8:01:48 Vital chart was started 8:01:56 Rhythm: atrial fibrillation 8:02:01 Is the patient allergic to Iodine/contrast media? No. 8:02:03 Is patient on blood thinner?Yes 8:02:05 ACC The patient was administered the following blood thiners within the last 24 hours: ACCAspirin, ACCPlavix 8:02:09 ACCPatient has been prescribed/administered the following anti-anginal medication within the last 2 weeks: Beta Sterling 8:03:06 Patient diabetic? Yes. 8:03:08 If diabetic: On Metformin? Yes 8:03:42 If on Metformin: Last Dose? 05/21/2016 8:03:47 Previous problem with sedation/anesthesia? No ? 8:03:53 Snore? Yes 8:03:54 Sleep apnea? No 8:03:55 Deviated septum? No 8:04:13 Opens mouth fully? Yes 8:04:14 Sticks out tongue? Yes 8:04:16 Airway obstruction? No ? 8:04:20 Dentures? No ? 8:04:23 Pre procedure: right dorsailis pedis pulse 2+ Normal; easily identifiable; not easily obliterated 8:04:25 Patient pain scale 0/10 ?. 8:04:32 IV patent on arrival in right forearm with 0.9% NaCl at O. 8:04:39 Lab results completed and on chart. 8:05:43 Right groin area was prepped with chlora-prep and draped in sterile fashion 8:05:44 Alarms reviewed by R. N. 8:05:45 Sharps counted by scrub and verified by R.N. 8:05:49 Use device set Femoral Dx 8:05:50 Acist Syringe opened to sterile field. 8:05:51 Bag Decanter opened to sterile field. 8:05:51 Cardinal Cath Pack opened to sterile field. 8:05:52 St Mauri 260cm J .035 wire opened to sterile field. 8:05:53 Acist Hand Control opened to sterile field. 8:05:54 Acist Manifold opened to sterile field. 8:05:54 Cordis Infinity 5Fr Multipack catheter opened to sterile field. 8:05:55 Tegaderm 4 x 4 opened to sterile field. 8:06:31 Physician paged 8:08:50 Benadryl 50 mg I.V. was given by Shaan Hutchinson RN; used for procedure; 8:09:01 Lidocaine 2% 20ml vial added to field was given by Breezy Hernandez MD; for local anesthetic; 8:09:09 Heparin Flush Bag (1000units/500ml NS) 2 bags added to field was given by Breezy Hernandez MD; used for procedure; 8:09:17 0.9% NaCl 100 ml/hr I.V. was given by Shaan Hutchinson RN; Per physician; 8:10:18 Zero performed for pressure channel P1 8:13:31 Baseline sample Acquired. 8:14:50 Final Timeout: patient, procedure, and site verified with staff and physician. All members of the team are in agreement. 8:15:11 Right groin site verified by team. 8:15:14 Physical assessment completed. ASA score P 3 - A patient with severe systemic disease as per Breezy Hernandez MD. 8:15:17 Sedation plan: IV Moderate Sedation Versed, Fentanyl 8:16:36 Versed 1 mg I.V. was given by Shaan Hutchinson RN; for sedation; 8:16:43 Fentanyl 50 mcg I.V. was given by Shaan Hutchinson RN; for sedation; 8:16:56 Procedure started. 8:17:00 Local anesthetic to right femoral artery with Lidocaine 2% by Breezy Hernandez MD.INITIAL ACCESS ONLY 8:17:26 A 6 Fr Short sheath was inserted into the Right Femoral artery 8:17:39 Terumo 6Fr [place] Sheath opened to sterile field. 8:18:15 A Cordis 5Fr Pigtail Catheter (MP) was advanced over the wire and used for LV Angiography. 8:18:19 LV gram done using DALTON 8:18:23 EF : 25 % 8:18:25 LV hemodynamics recorded. 8:18:27 Injector settings: Ml/sec: 5, Volume: 15, 8:18:28 Catheter removed. 8:18:33 A Cordis 5Fr JL 4.0 Catheter (MP) was advanced over the wire and used for Left Coronary Angiography. 8:20:10 Catheter removed. 8:20:18 A Cordis 5Fr 3DRC Catheter (MP) was advanced over the wire and used for Right Coronary Angiography. 8:20:36 InsightETE BasixCompak Inflation Kit opened to sterile field. 8:20:37 [place]lin Whisper J 300cm 0.014 guide wire opened to sterile field. 8:20:51 Heparin Bolus 4000 units I.V. was given by Shaan Hutchinson RN; for anticoagulation; verified with dr hernandze 8:21:06 Catheter removed. 8:21:55 PCI Cath status Elective 8:22:29 6 Fr XBLAD 4.0 guide catheter was inserted over the wire 8:22:46 Cordis 6FR XBLAD 4.0 guide catheter opened to sterile field. 8:23:20 WHISPER wire advanced. 8:23:59 ACC PCI Site: dLAD has 100% stenosis. 8:24:01 ACC Pre-intervention EUGENIO Flow is 0. 8:24:17 Inflation number: 1 A [place] Sci Harvey 2.0 X 20 balloon was prepped and advanced across the Dist LAD, then inflated to 13 MANPREET for 0:11 (min:sec). 8:24:46 Wire redirected to ?. 8:24:55 Wire removed. damaged. 8:25:22 [place] Sci Choice PT Extra Support J 300cm .014 gu opened to sterile field. 8:25:37 CHOICE PT ES wire advanced. 8:26:04 Versed 1 mg I.V. was given by Shaan Hutchinson RN; for sedation; 8:26:08 Fentanyl 50 mcg I.V. was given by Shaan Hutchinson RN; for sedation; 8:26:11 Inflation number: 2 The [place] Sci Harvey 2.0 X 20 balloon was reinflated across the Dist LAD, to 13 MANPREET for 0:07 (min:sec). 8:26:23 Inflation number: 3 The [place] Sci Harvey 2.0 X 20 balloon was reinflated across the Dist LAD, to 13 MANPREET for 0:10 (min:sec). 8:27:07 Inflation number: 4 The [place] Sci Harvey 2.0 X 20 balloon was reinflated across the Dist LAD, to 13 MANPREET for 0:04 (min:sec). 8:27:51 Nitroglycerin IC/IA 150 mcg I.C. was given by Breezy Hernandez MD; for vasodilation; 8:28:37 Wire removed. 8:29:09 WHISPER wire advanced. 8:29:39 Inflation number: 5 The [place] Holland Haptics Harvey 2.0 X 20 balloon was reinflated across the Dist LAD, to 7 MANPREET for 0:08 (min:sec). 8:35:05 Balloon removed over the wire. 8:35:45 Inflation Number: 6 A [place] Mini Vision Rx 2.0 x 12 stent was prepped and advanced across the Dist LAD. The stent was deployed at 9 MANPREET for 0:10 (min:sec). 8:36:13 Inflation number: 7 The stent balloon was then re-inflated across the Dist LAD to 5 MANPREET for 0:13 (min:sec). 8:36:45 Stent catheter was removed intact over wire. 8:36:50 Wire removed. 8:36:50 Guide catheter removed. 8:37:19 ACC Post-intervention EUGENIO Flow is 3. 8:37:32 Vascade 6/7 Fr Closure Device opened to sterile field. 8:37:47 Sheath removed intact; hemostasis achieved with Vascade Closure System to the Right Femoral artery. 8:37:50 Procedure ended.(Physican Out) 8:38:16 Fluoroscopy time 06.40 minutes. 8:38:21 Fluoroscopy dose: 1373 mGy 8:38:21 Flurop Dose total: 1373 8:38:26 Contrast amount:Isovue 300 125ml. 8:38:28 Sharps counted by scrub and verified by R.N. 8:38:29 Insertion/operative site no bleeding no hematoma. 8:38:32 Post-op/insertion site Right Femoral artery dressed using a 4 x 4 and Tegaderm. 8:38:35 Post right femoral artery:stable, clean and dry 8:38:37 Post Procedure Pulses reassessed and unchanged 8:38:43 Post-procedure physical assessment completed. ASA score P 3 - A patient with severe systemic disease as per Brezey Hernandez MD. 8:38:45 Post procedure rhythm: unchanged. 8:38:48 Estimated blood loss: 10 ml 8:38:50 Post procedure instruction explained to patient.Patient verbalizes understanding. 8:38:50 Patient needs reinforcement of post procedure teaching. 8:38:57 Procedure type changed to Cath procedure, Diagnostic procedure, LHC, LHC w/Coronaries, PCI procedure, Coronary Stent Initial 8:39:02 Procedure Complication : No complications 8:39:05 See physician's report for complete and final results. 8:43:05 Procedure and supply charges have been captured, reviewed, submitted and are correct. 8:43:05 Vital chart was stopped 8:43:09 Report given to PCU. 8:43:12 Patient transfered to PCU with Bed. 8:43:14 Procedure ended. 8:43:14 Full Disclosure recording stopped 8:43:40 End room use (Document Last) Intervention Summary Intervention Notes Time ActionType Lesion and Equipment Action# Pressure Duration Attributes Used 8:24:17 Inflate Dist LAD [place] 1 13 00:11 balloon Sci Harvey 2.0 X 20 balloon 8:26:11 Reinflate Dist LAD [place] 2 13 00:07 balloon Sci Harvey 2.0 X 20 balloon 8:26:23 Reinflate Dist LAD [place] 3 13 00:10 balloon Sci Harvey 2.0 X 20 balloon 8:27:07 Reinflate Dist LAD [place] 4 13 00:04 balloon Sci Harvey 2.0 X 20 balloon 8:29:39 Reinflate Dist LAD [place] 5 7 00:08 balloon Sci Harvey 2.0 X 20 balloon 8:35:45 [address] stent Dist LAD [place] 6 9 00:10 Mini Vision Rx 2.0 x 12 stent 8:36:13 Reinflate Dist LAD [place] 7 5 00:14 stent Mini balloon Vision Rx 2.0 x 12 stent Device Usage Item Name Manufacture Quantity Catalog Number Hospital Part Current Mini [facility] Lot# / Charge Number Stock Stock Serial# Code Acist Acist 1 [id number] 296942 013851 345352 20 Syringe Medical Systems Inc Bag Microtek 1 2002S 083467 16790 628337 5 Advanced [employer]. Cardinal Cardinal 1 [id number] 894773 25347 216025 [address] [facility] Mauri 1 [id number] 724669 053883 183263 30 260cm J .035 wire Acist Hand Acist 1 67673 014394 469470 946072 5 Control Medical Systems Inc Acist Acist 1 22115 519358 611076 177216 5 Novogy Medical Systems Inc Cordis Cardinal 1 PD5093 618585 29879 918890 30 MWM Media Workflow Management 5Fr Multipack catheter Tegaderm 4 3M 1 1626W 876453 778912 017477 5 x 4 Terumo 6Fr Terumo 1 [id number] 811843 362496 023410 40 [place] Sheath Cordis 5Fr Cardinal 1 620502 5 Pigtail Health Catheter (MP) Cordis 5Fr Cardinal 1 [id number] 5 JL 4.0 Health Catheter (MP) Cordis 5Fr Cardinal 1 940099 5 3DRC Health Catheter (MP) Merit Merit 1 [id number] 297193 872014 621978 15 BasixCompak Medical Inflation Kit [place] 1 [id number] 470443 307889 349329 5 Whisper J Vascular 300cm 0.014 guide wire Cordis 6FR Cardinal 1 [id number] 369156 686964 886344 3 XBLAD 4.0 Health guide catheter [place] Sci [place] 1 [id number] 168761 507714 747336 1 [id number] Harvey Scientific 2.0 X 20 balloon [place] Sci [place] 1 [id number] 155416 646834 723294 5 Choice PT Scientific Extra Support J 300cm .014 gu Hamlin Mini Hamlin 1 [id number] 084659 330539 562377 5 [id number] Vision Rx Vascular 2.0 x 12 stent Vascade 10/15 Cardiva 1 [id number] 880857 802898 033090 5 Fr Closure Medical, Device Inc. Signature Audit [place] Stage Time Signature Unsigned Intra-Procedure 05/23/2016 Peggy 8:44:43 AM Counts RT(R) Signatures Monitor : Peggy Signature : Counts RT Date : Time : [facility] [address] [place] [address]
[~2016-05-21 20:01] MED LIST changes: +ASPIRIN81 MG PO; +PLAVIX75 MG PO; +PRAVACHOL20 MG PO; +PROVENTIL/2.5 MG/3 M INH; +TOBREX5 ML LEFT EYE
[2016-05-21 20:33] LABS: BASOPHILS 0.5 % (0.0-2.0); EOSINOPHILS 2.1 % (0-7); HEMATOCRIT 38.1 % (42.0-54.0); IMMATURE GRANULOCYTES 0.9 % (0-5); LYMPHOCYTES 15.2 % (15-50); MCH 28.7 pg (26.0-34.0); MCHC 31.5 g/dL (31.0-37.0); MCV 91.1 fL (80.0-100.0); MEAN PLATELET VOLUME 11.6 fL (7.4-10.4); MONOCYTES 10.3 % (2-11); RBC 4.18 10x6/uL (4.20-6.10); WBC 7.6 10x3/uL (4.8-10.8)
[2016-05-21 20:34] LABS: PLATELET COUNT 238 10x3/uL (130-400)
[2016-05-21 21:00] LABS: ALBUMIN 2.8 g/dL (3.4-5.0); ALKALINE PHOSPHATASE 76 U/L (46-116); ALT (SGPT) 26 U/L (10-68); BILIRUBIN - TOTAL 0.65 mg/dL (0.2-1.3); CALC OSMOLALITY 287 mosm/kg (275-300); CALCIUM 10.2 mg/dL (8.5-10.1); CARBON DIOXIDE 28.3 mmol/L (21.0-32.0); CHLORIDE - SERUM 101 mmol/L (98-107); CREATININE - SERUM 1.7 mg/dL (0.6-1.3); POTASSIUM - SERUM 4.9 mmol/L (3.5-5.1); PROTEIN - SERUM 8.4 g/dL (6.4-8.2); SODIUM 139 mmol/L (136-145); UREA NITROGEN 26 mg/dL (7-18); eGFR NON AFRICAN AMERICAN 43 mL/min (90-120)
[2016-05-21 21:06] LABS: GLUCOSE 191 mg/dL (74-106)
[2016-05-21 21:07] LABS: CHOL - HDL RATIO 3.7 ratio (2.3-4.9); CHOLESTEROL, TOTAL 154 mg/dL (0-200); CKMB 1.2 U/L (0.0-3.6); CREATINE KINASE 47 UL (21-232); HDL CHOLESTEROL 42 mg/dL (32-96); LDL CHOLESTEROL 82 mg/dL (0-100); TRIGLYCERIDE 150 mg/dL (30-200)
[2016-05-21 21:11] LABS: TROPONIN-I 2.575 ng/mL (0.000-0.060)
[2016-05-21 22:11] LABS: UDS - AMPHET NEGATIVE QUAL (NEGATIVE); UDS - BARB NEGATIVE QUAL (NEGATIVE); UDS - BENZO POSITIVE QUAL (NEGATIVE); UDS - COCAINE NEGATIVE QUAL (NEGATIVE); UDS - METH NEGATIVE QUAL (NEGATIVE); UDS - OPIATE POSITIVE QUAL (NEGATIVE); UDS - PCP NEGATIVE QUAL (NEGATIVE); UDS - THC NEGATIVE QUAL (NEGATIVE)
[2016-05-21 22:15] LABS: APPEARANCE CLEAR (CLEAR); BILIRUBIN NEGATIVE (NEGATIVE); COLOR DK YELLOW (YELLOW); GLUCOSE NEGATIVE (NEGATIVE); KETONE NEGATIVE (NEGATIVE); LEUKOCYTE ESTERASE NEGATIVE (NEGATIVE); NITRITE NEGATIVE (NEGATIVE); PROTEIN TRACE mg/dL (NEGATIVE); SPECIFIC GRAVITY 1.025 (1.005-1.020); UROBILINOGEN NORMAL (NORMAL)
[2016-05-21] MEDS ORDERED: FUROSEMIDE20 MG PO (22:23)
[2016-05-21] MEDS ORDERED: CHERATUSSIN AC473 ML PO (22:23)
[2016-05-21] MEDS ORDERED: LANTUS INSULIN10 ML SC (22:27)
[2016-05-21 22:32] VITALS: BP 122/72
--- NOTE | 2016-05-21 22:43 | NUR ---
RECEIVED FROM ER,IV-LAC-RFA, TELEMTRY-82 CAF, VITALS STABLE,BED IS LOW, SRX2, CALL LIGHT IN REACH
[2016-05-22 01:32] VITALS: BP 93/51
--- NOTE | 2016-05-22 02:26 | NUR ---
LYING IN BED WITH CALL LIGHT IN REACH. WILL CONTINUE WITH PLAN OF CARE.
[2016-05-22 04:57] VITALS: BP 88/46
--- NOTE | 2016-05-22 05:10 | NUR ---
SLEEPING, CALL LIGHT IN REACH, BED LOW, SRX 2,
--- NOTE | 2016-05-22 07:15 | NUR ---
PT SITTING UP IN BED SLEEPING. NO S/S DISTRESS NOTED. WILL CONTINUE TO MONITOR.
--- NOTE | 2016-05-22 08:35 | NUR ---
CALLED PHARM AND ASKED BRANDO TO BRING PT MEDS UP
[2016-05-22 08:38] VITALS: BP 98/64
--- NOTE | 2016-05-22 09:28 | NUR ---
PT FSBS WAS 494. PT WAS EATING BREAKFAST AND I THINK PT FINGERS MAY HAVE HAD SOME ORANGE JUICE ON THEM. CLEANED PT FIGNERS WIHT MORE THAN JUST ALCOHOL (SOAP AND WATER). PT FS BACK DOWN TO 141. WAITING ON SUHA FROM PHARM STILL
[2016-05-22 10:18] LABS: BASOPHILS 0.6 % (0.0-2.0); EOSINOPHILS 2.7 % (0-7); HEMATOCRIT 36.4 % (42.0-54.0); HEMOGLOBIN 11.3 g/dL (13.5-17.5); IMMATURE GRANULOCYTES 0.8 % (0-5); LYMPHOCYTES 15.9 % (15-50); MCH 28.8 pg (26.0-34.0); MCV 92.9 fL (80.0-100.0); MEAN PLATELET VOLUME 10.8 fL (7.4-10.4); MONOCYTES 9.8 % (2-11); NEUTROPHILS 70.2 % (40-80); PLATELET COUNT 234 10x3/uL (130-400); RBC 3.92 10x6/uL (4.20-6.10); RDW 15.4 % (11.5-14.5)
[2016-05-22 10:19] LABS: WBC 5.1 10x3/uL (4.8-10.8)
[2016-05-22 10:34] LABS: ANION GAP 10.9 mmol/L (8-16); CALCIUM 8.9 mg/dL (8.5-10.1); CARBON DIOXIDE 32.1 mmol/L (21.0-32.0); CREATININE - SERUM 1.6 mg/dL (0.6-1.3)
--- NOTE | 2016-05-22 11:39 | NUR ---
DRESSED BILAT LEG DRESSINGS. REMOVED OLD ONES. R LEG WITH MULTIPLE SCABS. CLEANSED WITH WOUND PLATE GLASS GRINDER AND REPLACED GAUZE CURLEX SIGNED AND DATED. LEFT LEG WITH OPEN SCRAPE ALONG WITH SCABS. SCRAPE IS BLACK ALONG EDGES. CLEANSED WITH WOUND PLATE GLASS GRINDER. PLACED NONADHEARANT GAUZE, GAUZE, CURLEX, SIGNED AND DATED
[2016-05-22 12:25] VITALS: BP 94/47
[2016-05-22 12:36] VITALS: Ht 177.8 cm; Wt 89.3 kg
--- NOTE | 2016-05-22 15:55 | NUR ---
PT SITTING UP IN BED DENIES NEEDS AT THIS TIME WILL CONTINUE TO MONITOR
[2016-05-22 16:28] VITALS: BP 90/60
[2016-05-22 20:00] VITALS: BP 101/59
--- NOTE | 2016-05-22 21:39 | NUR ---
HS MEDICATIONS GIVEN. PT DENIES PAIN OR NEEDS, BED LOW, CL IN REACH, WILL CONT TO MONITOR.
[2016-05-23] VITALS: BP 108/80
--- NOTE | 2016-05-23 00:27 | NUR ---
RESTING WITH EYES CLOSED, RESPERATIONS EVEN, NO S/S DISTRESS NOTED.
[2016-05-23 04:00] VITALS: BP 94/59
--- NOTE | 2016-05-23 05:02 | NUR ---
CALL LIGHT IN REACH, WILL CONTINUE WITH PLAN OF CARE.
--- NOTE | 2016-05-23 06:52 | NUR ---
AM BLOOD SUGAR CHECK, 110.
--- NOTE | 2016-05-23 07:15 | NUR ---
PT SITTING UP IN BED DENIES NEEDS WILL CONTINUE TO MONITOR.
--- NOTE | 2016-05-23 08:08 | NUR ---
WENT TO PREOP PT AND PT WAS GONE TO PRESS TECHNICIAN. PRESS TECHNICIAN CALLED TO PREOP TWO PTS AT ONE TIME PREOPED THE FIRST ONE AND WENT TO DO SECOND. HE WAS ALREADY GONE.
--- NOTE | 2016-05-23 09:01 | NUR ---
PT BACK FROM LOOM SETTER. VERY LETHARGIC. VS WNL. GROIN SITE WNL. WILL CONTINUE TO MONITOR.
--- NOTE | 2016-05-23 09:08 | NUR ---
CALLED PT SON TO GIVE HIM UPDATE NO ANSWER
--- NOTE | 2016-05-23 09:58 | NUR ---
PT WOKE UP AND SAT HIMSELF UP. INSTRUCTED PT HE HAS TO LAY FLAT. AND IMPORTANCE ON IT. PT VERBALIZES UNDERSTANDING. PT R GROIN SITE STILL WNL AND VS STILL WNL. PT LAYING FLAT AND EATING BREAKFAST.
--- NOTE | 2016-05-23 11:11 | HP ---
PATIENT: JOAQUINA MCKEON MEDICAL RECORD: [id number] ACCOUNT: [id number] LOCATION:[address] : 54 ADMISSION DATE: 05/21/16 HISTORY AND PHYSICAL EXAMINATION ADMITTING DIAGNOSES: 1. Non-Q-wave myocardial infarction. 2. Recent non-Q-wave myocardial infarction. 3. Recent percutaneous transluminal coronary angioplasty, stent left anterior descending and circumflex. 4. Anginal symptomatology. 5. Cardiomyopathy. 6. Chronic obstructive pulmonary disease. 7. Smoking history. 8. Hypertension. 9. Hyperlipidemia. HISTORY OF PRESENT ILLNESS: Mr. Mckeon recently presented with a non-Q-wave myocardial infarction, found to have severe 3-vessel coronary artery disease. He underwent PTCA stent of the LAD and left circumflex. He denies any medical noncompliance. He has been taking the aspirin and Plavix. He did well until yesterday. He had severe onset of chest discomfort last night. His troponin is up further that it was previously at greater than 2. He is pain free at this time. His anatomy as such that the right coronary is totally occluded ____ as well as right to right collaterals. There subtotal occlusion in the mid right coronary that is amenable to transcatheter revascularization. He is now in atrial fibrillation with rapid ventricular response. I am going to look back with the record to see if he was in atrial fibrillation last week. His EKG does have ST-T changes inferiorly with the tachycardia. PHYSICAL EXAMINATION: GENERAL APPEARANCE: Well-nourished, well-developed, appears stated age. Level of distress, comfortable. PSYCHIATRIC: Mental status, alert, normal affect. Orientation, oriented to time, place and person. EYES: Lids and conjunctiva, noninjected. No discharge, no pallor. ENT: Lips, teeth, gums, normal dentition. Oropharynx, no cyanosis, no pallor. NECK: Carotid arteries, bilateral normal upstroke, no bruits, no thrills. JUGULAR VEINS: No jugular venous pressure or distention. CERVICAL LYMPH NODES: Nontender, nonenlarged. THYROID: Not enlarged. Nontender. No nodules. LUNGS: Respiratory effort, unlabored. CHEST: Normal curvature. No thoracic deformity. No chest wall tenderness. Percussion, resonant. Auscultation, clear. No wheezes, no rales, no rhonchi. CARDIOVASCULAR: Precordial exam, nondisplaced. No heaves or pericardial thrills. ____. Heart sounds, normal S1, normal S2. No S3, no gallop, no rub. Systolic murmur, not heard. Diastolic murmur, not heard. EXTREMITIES: No cyanosis, no edema. Peripheral pulses, full and equal in all extremities, except as noted. No bruits appreciated. ABDOMEN: Soft, nondistended. Normal aorta. No bruit. Nontender. No masses. Liver, nontender, no hepatomegaly. Spleen, nontender, no splenomegaly. MUSCULOSKELETAL: No joint tenderness. No joint swelling. No erythema. NEUROLOGICAL: Normal gait, normal strength, normal tone. SKIN: Warm and dry. HISTORY AND PHYSICAL [id number] JOAQUINA MCKEON REVIEW OF SYSTEMS: The patient reports easy bruising but reports no swollen glands. The patient reports no fever, no night sweats, no significant weight gain, no significant weight loss. No significant exercise tolerance. The patient reports no dry eyes, no irritation, no vision change. Patient reports no difficulty hearing and no ear pain. Patient reports no frequent nose bleeds or nose and sinus problems. Patient reports on arm pain on exertion. No shortness of breath while lying down. No history of heart murmur. Patient reports no cough, no wheezing or coughing up blood. Patient reports no abdominal pain, no vomiting. Normal appetite. No diarrhea and not vomiting blood. No nausea and no constipation. Patient reports no incontinence. No difficulty urinating. No hematuria. No increased frequency. Patient reports no muscle aches. No weakness, no arthralgias, no back pain. No swelling of the extremities. Patient reports no abnormal mole, no jaundice, no rashes. Reports no loss of consciousness. No weakness and no numbness. No seizures, dizziness, or headaches. The patient reports no depression, no sleep disturbance, feeling safe in a relationship and no alcohol abuse. Patient reports on fatigue. Reports no runny nose or sinus pressure. No itching, no hives, and no frequent sneezing. OVERALL IMPRESSION: At this time, we will control the heart rate with medications. We will look back to the old record to see if he was in atrial fibrillation and if he was in sinus rhythm last admission, would consider DC cardioversion and possible repeat cardiac catheterization with hopes of transcatheter revascularization in the mid right may help increase flow for the right to right collaterals. TRANSINT:[id number] Voice Confirmation ID: [id number] DOCUMENT ID: [id number] BRANDON JAIN MD at 1111 CC: [id number] DICTATION DATE: 05/22/1633 NETWORK SECURITY CONSULTANT: 05/22/16 0854 ADM IN [facility] [address] [id number]
--- NOTE | 2016-05-23 11:11 | OP ---
PATIENT NAME: JOAQUINA MCKEON MEDICAL RECORD: [id number] :54 LOCATION:D.M2 D.2126 ADMISSION DATE:05/21/16 SURGEON: BRANDON JAIN MD DATE OF OPERATION: 05/23/2016 PROCEDURES: 1. PTCA, stent LAD. 2. Left heart catheterization. 3. Selective coronary angiography. 4. Left ventriculogram. INDICATION: Non-Q-wave myocardial infarction, coronary artery disease and angina. PROCEDURE IN DETAIL: After informed consent was obtained and after a detailed explanation of the risks, benefits, as well as alternative therapies, the patient elected to proceed with angiogram and angioplasty. The right femoral area was prepped and draped in normal sterile fashion. The right femoral artery was cannulated via modified Seldinger technique with placement of 6-Irish sheath. All catheters exchanged through this sheath. FINDINGS: The left ventriculogram was performed in standard 30-degree DALTON view reveals global hypokinesis throughout all segments. Overall ejection fraction 25% to 30%. SELECTIVE CORONARY ANGIOGRAPHY: 1. Left main showed no significant angiographic disease. 2. Left circumflex is widely patent, previously placed stent is widely patent. 3. The right coronary is chronically totally occluded, unchanged from previous angiography. 4. Left anterior descending has previously placed stents, these are widely patent in the proximal aspect; however, there is a new acute occlusion in the distal aspect. PTCA STENT OF THE LAD: The balloon used was a 2.0 balloon. Stent used was a 2.0 x 12 Vision. Result was 0% residual stenosis with rastafarian of EUGENIO-3 flow. IMPRESSION: Successful percutaneous transluminal coronary angioplasty stent of the left anterior descending going from 100% initial stenosis, acute to 0% residual stenosis. TRANSINT:[id number] Voice Confirmation ID: [id number] DOCUMENT ID: [id number] BRANDON JAIN MD at 1111 CC: [id number] DICTATION DATE: 05/23/1640 COMMERCIAL GLAZIER: 05/23/16 0941 ADM IN [id number] [place] [address]
[2016-05-23 12:00] VITALS: BP 107/61
[2016-05-23 16:02] VITALS: BP 99/61
--- NOTE | 2016-05-23 16:35 | NUR ---
Patient Name: JOAQUINA MCKEON Admission Status: ER Accout number: [id number] Admission Date: 05-21-2016 : 1950 Admission Diagnosis:CHEST PAIN, UNSPECIFIED Attending: KAITLIN Current LOS: 2 Anticipated DC Date: Planned Disposition: Home Primary Insurance: MEDICAID [place] Discharge Planning Comments: * Is the patient Alert and Oriented? Yes 0 * How many steps to enter\exit or inside your home? 2 0 * PCP NONE 0 * Pharmacy [facility] 0 * Preadmission Environment Home with Family 0 * ADLs Independent 0 * Equipment None 0 * Other Equipment NO MEDICAL EQUIPMENT PROVIDER PREFERENCE 0 * List name and contact numbers for known caregivers / representatives who currently or will assist patient after discharge: MYRANDA MCKEON, SON, 0 * Community resources currently utilized Home Health 0 * Please name any agencies selected above. [facility] 0 * Additional services required to return to the preadmission environment? No 0 * Can the patient safely return to the preadmission environment? Yes 0 * Has this patient been hospitalized within the prior 30 days at any hospital? Yes 0 CM MET WITH PT IN ROOM TO DISCUSS DISCHARGE PLANNING AND NEEDS. PT REPORTS LIVING AT HOME INDEPENDENTLY WITH AN ADULT FRIEND. PT HAS NO MEDICAL EQUIPMENT AND HAD HOME HEALTH WITH [facility] UPON ADMISSION. PT HAS NO PRIMARY DOCTOR BUT DR. SHARP HAD AGREED TO WRITE HOME HEALTH ORDERS AND MADE AN APPOINTMENT WITH PT FOR FOLLOW UP AND PT GOT SICK BEFORE THE FOLLOW UP APPOINTMENT. PT DID NOT ATTEMPT TO CONTACT THE [facility] TO TRY TO ESTABLISH PRIMARY CARE PRIOR TO READMISSION. CM PROVIDED [facility] INFORMATION AND ENCOURAGED PT TO CALL AND MAKE AN APPOINMENT WITH [facility] SOON POSSIBLE AFTER DISCHARGE AND REINFORMED PT THAT DR. SHARP WAS NOT ACCEPTING PT FOR PRIMARY CARE AND ONLY AGREED TO WRITE HOME HEALTH ORDERS. CM DISCUSSED AVAILABILITY OF REHAB SERVICES AND MEDICAL EQUIPMENT. PT DENIES DISCHARGE NEEDS, REPORTS HIS SON WILL PICK HIM UP FOR DISCHARGE HOME. CM CALLED [facility], , SPOKE TO BRAN WHO INFORMED CM THAT DR. SHARP WAS FOLLOWING PT FOR HOME HEALTH ORDERS AND THEY WILL RESUME HOME HEALTH AT DISCHARGE. GEORGINA MADE NOTE IN PT'S HOME HEALTH CHART THAT PT NEEDS TO ESTABLISH WITH PRIMARY CARE DOCTOR. FOR DISCHARGE, NOTIFY [facility] AT [phone], FAX DISCHARGE INFORMATION TO [facility] AT [phone]. Malt House Operator: Antoine Whittaker
--- NOTE | 2016-05-23 18:44 | NUR ---
PT SITTING UP IN BED DENIES NEEDS
[2016-05-23 20:00] VITALS: BP 112/73
[2016-05-24] VITALS: BP 101/68
--- NOTE | 2016-05-24 02:06 | NUR ---
ANTIQUE DEALER IN ROOM ASSISTING PT WITH BATH AND LINEN CHANGE. WILL CONT TO MONITOR.
--- NOTE | 2016-05-24 07:18 | NUR ---
PT SITTING UP IN BED DENIES NEEDS WILL CONTINUE TO MONITOR.
[2016-05-24 08:40] VITALS: BP 121/66
[2016-05-24 12:03] VITALS: BP 105/59
[2016-05-24 14:47] VITALS: BP 109/59
--- NOTE | 2016-05-24 18:27 | NUR ---
PT SITTING UP IN BED DENIES NEEDS
--- NOTE | 2016-05-24 19:36 | NUR ---
ASSESSMENT COMPLETE, A&O. BILATERAL FOREARM IVS SL. DRSG TO BILATERAL LOWER EXTREMITIES INTACT. PT DENIES PAIN OR NEEDS, BED LOW, CL IN REACH.
[2016-05-24 21:13] VITALS: BP 154/99
[2016-05-25] VITALS (7 sets, daily range): BP systolic 109–135; BP diastolic 59–81
--- NOTE | 2016-05-25 09:52 | NUR ---
TELEMETRY CAF. RESP UL ON 2L NC. CALL LIGHT IN REACH. WILL CONT. PLAN OF CARE.
--- NOTE | 2016-05-25 10:26 | NUR ---
DRSGS CHANGED TO LOWER EXTREMETIES.
--- NOTE | 2016-05-25 19:34 | NUR ---
RESUMED CARE OF PT, LYING IN BED RESPIRATIONS EVEN AND UNLABORED ON 2LPM VIA NC. 65 CAF ON TELEMETRY. L AND R FOREARM SALINE LOCKED. L AND R LEG DRESSINGS. NO NEEDS VOICED AT THIS TIME. WILL CONTINUE TO MONITOR. SEE NURSE ASSESSMENT. CALL LIGHT IN REACH.
[2016-05-26] VITALS: BP 79/51
--- NOTE | 2016-05-26 02:37 | NUR ---
LYING IN BED WITH EYES CLOSED, CALL LIGHT IN REACH. WILL CONTINUE WITH PLAN OF CARE.
[2016-05-26 04:00] VITALS: BP 157/80
--- NOTE | 2016-05-26 07:06 | NUR ---
NO CHANGES FROM PREVIOUS ASSESSMENT, CALL LIGHT IN REACH.
[2016-05-26 09:05] VITALS: BP 83/48
[2016-05-26] MEDS ORDERED: PRAVACHOL20 MG PO (10:48)
--- NOTE | 2016-05-26 11:55 | NUR ---
IV AND TELEMETRY DCD. DC PLANS GIVEN. UNDERSTANDING VOICED. ESCORTED TO [facility] BY W/C.
--- NOTE | 2016-05-26 13:13 | NUR ---
Patient Name: JOAQUINA MCKEON Encounter No: [id number] : 1950 Primary Insurance: MEDICAID [place] Anticipated DC Date: Planned Disposition: Home WITH HOME HEALTH External Planned Provider: [facility] RESUMPTION LATE ENTRY: DCP follow-up note: CM RECEIVED DISCHARGE ORDER, MET WITH PT IN ROOM TO DISCUSS DISCHARGE NEEDS AND PLANNING. CM DISCUSSED AVAILABILITY OF REHAB SERVICES AND MEDICAL EQUIPMENT. PT DENIES DISCHARGE NEEDS OTHER THAN HOME HEALTH RESUMPTION. SON TO TRANSPORT HOME AT DISCHARGE. CM CALLED AND NOTIFIED JODY OF [facility] AT [phone], FAXED DISCHARGE INFORMATION TO [facility] AT [phone]. Crusher Wet Ground Mica: Antoine Whittaker
--- NOTE | 2016-05-27 08:41 | NUR ---
Patient Name: JOAQUINA MCKEON Encounter No: [id number] : 1950 Primary Insurance: MEDICAID [facility] DC Date: 05-26-2016 Planned Disposition: Home POST DISCHARGE FOLLOW UP: DCP follow-up note: CM RECEIVED CALL FROM JODY OF [facility] AT [phone], THEY WERE UNABLE TO RESUME HOME HEALTH DR. SHARP WOULD NOT FOLLOW ORDERS ANY LONGER AND PT HAS NO PRIMARY DOCTOR. [facility] HAS GOTTEN PT AN APPOINTMENT WITH [facility] NEXT THURSDAY AND IF PT GOES AND IF ACCEPTED BY [facility], HOME HEALTH WILL BE ARRANGED. Tool Design Checker: Antoine Whittaker
--- NOTE | 2016-05-30 16:40 | DS ---
PATIENT:JOAQUINA MCKEON :[birth year] MEDICAL RECORD: [id number] DISCHARGE SUMMARY ADMISSION DATE: 05/22/16 DISCHARGE DATE: 05/26/16 DIAGNOSES: 1. Non-Q-wave myocardial infarction. 2. Coronary artery disease. 3. Percutaneous transluminal coronary angioplasty stent left anterior descending this admission. 4. Cardiomyopathy. 5. Atrial fibrillation, chronic. 6. Chronic obstructive pulmonary disease. 7. Smoking history. 8. Congestive heart failure, chronic systolic dysfunction. 9. Hypertension. 10. Hyperlipidemia. HOSPITAL COURSE: This is a gentleman who presents with recurrent anginal symptomatology and found to have subacute thrombosis of the distal LAD, underwent successful PTCA stent, reopening of the LAD. He had no further anginal symptomatology. He has a history of atrial fibrillation. He is on Eliquis for this as well as Coreg for rate control. His left atrium is markedly enlarged and he has a significant cardiomyopathy, most likely the atrial fibrillation is chronic at this point. We will continue these medications. Continue his aspirin and Plavix. We will follow up with [facility] in 1 month. TRANSINT:[id number] Voice Confirmation ID: [id number] DOCUMENT ID: [id number] BRANDON JAIN MD at 1640 CC: [id number] DICTATION DATE: 05/26/16 1007 GRAIN COMBINER: 05/26/16 1013 DIS IN 05/26/16 [facility] [address] [place] [address]
== END 2016-05-26 11:57 | disposition home or self-care (01) | DRG 249 ==
LOC: D.ER 20:01 → D.M2 20:49 → OBSVTIME 20:49 → D.M2 05-22 12:51 → D.SDCHOLD 05-22 13:30 → D.M2 05-22 13:30
PROVIDERS: Emergency Medicine; ADMIT Internal Medicine Interventional Cardiology
PROC: 4A023N7 Measurement of Cardiac Sampling and Pressure, Left Heart, Percutaneous Approach (ICD-10-PCS; 2016-05-23)
PROC: B2111ZZ Fluoroscopy of Multiple Coronary Arteries using Low Osmolar Contrast (ICD-10-PCS; 2016-05-23)
PROC: 02703DZ Dilation of Coronary Artery, One Artery with Intraluminal Device, Percutaneous Approach (ICD-10-PCS; principal; 2016-05-23 10:45)
DX: I22.2 Subsequent non-ST elevation (NSTEMI) myocardial infarction (principal); I50.22 Chronic systolic (congestive) heart failure; I42.9 Cardiomyopathy, unspecified; I21.4 Non-ST elevation (NSTEMI) myocardial infarction; I25.10 Atherosclerotic heart disease of native coronary artery without angina pectoris; Z95.5 Presence of coronary angioplasty implant and graft; I11.0 Hypertensive heart disease with heart failure; E78.5 Hyperlipidemia, unspecified; J44.9 Chronic obstructive pulmonary disease, unspecified; I48.2 Chronic atrial fibrillation; I25.5 Ischemic cardiomyopathy

== ENCOUNTER → 2016-09-23 08:27 | Outpatient (CLI) | payer MEDICAID ==
[2016-05-22 12:36] VITALS: BMI 32.2
[~2016-09-23 08:27] MED LIST changes: +CHERATUSSIN AC473 ML PO; +FUROSEMIDE20 MG PO
== END | disposition home or self-care (01) ==
LOC: D.RT 08:27
DX: J44.9 Chronic obstructive pulmonary disease, unspecified (principal)

== ENCOUNTER 2018-07-19 16:36 | Inpatient (IN) | payer MEDICARE ==
[~2018-07-19] VITALS: Ht 177.8 cm; Wt 81.6 kg
[2018-07-19 17:23] LABS: BASOPHILS 0.9 % (0-2); HEMATOCRIT 36.2 % (42.0-54.0); HEMOGLOBIN 11.5 g/dL (13.5-17.5); IMMATURE GRANULOCYTES 0.3 % (0-5); LYMPHOCYTES 11.5 % (15-50); MCH 30.6 pg (26.0-34.0); MCHC 31.8 g/dL (31.0-37.0); MCV 96.3 fL (80.0-100.0); MEAN PLATELET VOLUME 11.3 fL (7.4-10.4); NEUTROPHILS 67.3 % (40-80); PLATELET COUNT 191 10x3/uL (130-400); RBC 3.76 10x6/uL (4.20-6.10); RDW 15.3 % (11.5-14.5); WBC 5.8 10x3/uL (4.8-10.8)
--- NOTE | 2018-07-19 21:30 | NUR ---
PT RESTING ON BED. SITTING UP, WATCHING TV. PT DENIES NEEDS AT THIS TIME.
[2018-07-19 22:06] VITALS: BP 140/82
[2018-07-19 22:19] LABS: ALBUMIN 3.1 g/dL (3.4-5.0); ANION GAP 16.2 mmol/L (8-16); BILIRUBIN - TOTAL 0.29 mg/dL (0.2-1.3); CALCIUM 8.7 mg/dL (8.5-10.1); CARBON DIOXIDE 24.5 mmol/L (21.0-32.0); CREATININE - SERUM 3.4 mg/dL (0.6-1.3); POTASSIUM - SERUM 4.7 mmol/L (3.5-5.1); PROTEIN - SERUM 7.7 g/dL (6.4-8.2)
[2018-07-19 22:30] LABS: TROPONIN-I 0.046 ng/mL (0.000-0.060)
--- NOTE | 2018-07-19 22:30 | NUR ---
PT PROVIDED URINAL. NO S/S OF ACUTE DISTRESS NOTED.
--- NOTE | 2018-07-19 23:15 | NUR ---
PT UPDATED ON PLAN OF CARE. NO S/S OF ACUTE DISTRESS NOTED.
--- NOTE | 2018-07-20 | NUR ---
REPORT RECEIVED FROM TL ISSA.
[2018-07-20 03:47] VITALS: BP 104/66
[2018-07-20 07:24] LABS: ANION GAP 13.3 mmol/L (8-16); CARBON DIOXIDE 29.6 mmol/L (21.0-32.0); CREATININE - SERUM 3.3 mg/dL (0.6-1.3)
[2018-07-20 07:25] LABS: POTASSIUM - SERUM 3.9 mmol/L (3.5-5.1)
--- NOTE | 2018-07-20 07:27 | NUR ---
ROUNDING DONE WITH PATIENT BEING HARD OF HEARING. STATES THAT HIS SON IS TO BRING HIS LIST OF HOME MEDICATIONS. ON HEART MONITOR SHOWING AFLUTTER, HR 98. ON ROOM AIR. DENIES ANY SHORTNESS OF BREATH AT THIS TIME. RIGHT FA PIV SEEN WITH SALINE LOCK, ORANGE SWAB CAP IN USE.
[2018-07-20 07:30] LABS: EOSINOPHILS 13.6 % (0-7); HEMATOCRIT 36.9 % (42.0-54.0); HEMOGLOBIN 11.8 g/dL (13.5-17.5); IMMATURE GRANULOCYTES 0.3 % (0-5); LYMPHOCYTES 13.8 % (15-50); MCH 31.1 pg (26.0-34.0); MCV 97.1 fL (80.0-100.0); MEAN PLATELET VOLUME 11.6 fL (7.4-10.4); MONOCYTES 7.4 % (2-11); NEUTROPHILS 63.9 % (40-80); PLATELET COUNT 196 10x3/uL (130-400); RDW 15.3 % (11.5-14.5); WBC 6.2 10x3/uL (4.8-10.8)
[2018-07-20 08:26] VITALS: BP 116/76
--- NOTE | 2018-07-20 10:00 | NUR ---
PATIENT STATES HE TALKED TO HIS SON WHO WILL BRING HIS MEDS UP.
[2018-07-20] MEDS ORDERED: LISINOPRIL40 MG PO (11:41)
[2018-07-20] MEDS ORDERED: FER-IN-SOL DROP50 ML (11:41)
[2018-07-20] MEDS ORDERED: PACERONE200 MG PO (11:42)
[2018-07-20 11:44] VITALS: BP 119/81
[2018-07-20 12:52] VITALS: BMI 25.8
--- NOTE | 2018-07-20 13:53 | NUR ---
RESTING WITH EYES CLOSED, RESP ARE EVEN.
[2018-07-20 14:13] VITALS: Ht 177.8 cm; Wt 81.6 kg
[2018-07-20 15:01] LABS: % SATURATION 23 % (15-55); IRON 64 ug/dl (35-150); TOTAL IRON BIND CAPACITY 274 ug/dl (260-445); UNSAT IRON BIND CAPACITY 210 ug/dl (150-375)
[2018-07-20 15:34] VITALS: BP 123/75
--- NOTE | 2018-07-20 15:45 | NUR ---
BILATERAL SCD' PLACED ON PAITENT.
--- NOTE | 2018-07-20 15:53 | NUR ---
URINE SENT TO LAB ORDERED.
[2018-07-20 16:47] LABS: APPEARANCE CLEAR (CLEAR); BILIRUBIN NEGATIVE (NEGATIVE); COLOR YELLOW (YELLOW); GLUCOSE NEGATIVE (NEGATIVE); KETONE NEGATIVE (NEGATIVE); NITRITE NEGATIVE (NEGATIVE); PROTEIN NEGATIVE (NEGATIVE); UROBILINOGEN NORMAL (NORMAL)
--- NOTE | 2018-07-20 17:44 | NUR ---
SITTING UP IN THE BED FINISHING SUPPER. DENIES NEEDS. SCD'S ARE ON AND IN USE STILL. YELLOW URINE TO URINAL, EMPTIED. CALL LIGHT AT SIDE.
--- NOTE | 2018-07-20 19:10 | NUR ---
PT AMBULATING IN BERMUDEZ, GIAT STEADY, PT DENIES NEEDS.
[2018-07-20 20:00] VITALS: BP 114/76
[2018-07-20 23:55] VITALS: BP 117/81
--- NOTE | 2018-07-21 02:01 | NUR ---
FIXED PT TELEMETRY PT IS FLUTTER 94 WITH OCCASIONAL PVCS PT RESTING IN BED. NO S/S OF DISTRESS. ROUNDED STOMACH, SCAB/SORE ON STOMACH. PT HAS SCD'S ON BILATERAL LOWER EXTREM. PT HAS CALL LIGHT IN REACH. BEDLOW . WILL CPOC
[2018-07-21 03:55] VITALS: BP 110/63
--- NOTE | 2018-07-21 07:30 | NUR ---
ASSESSMENT DONE. DENIES NEEDS.
[2018-07-21 09:19] LABS: FOLATE (FOLIC ACID) - SERUM 13.1 ng/mL (>3.0)
[2018-07-21 10:23] VITALS: BP 119/68
--- NOTE | 2018-07-21 10:59 | NUR ---
I have reviewed this patient and I concur with the Shift Assessment completed by the Licensed Practical Nurse today this shift.
[2018-07-21 12:53] LABS: HEMATOCRIT 37.6 % (42.0-54.0); HEMOGLOBIN 12.2 g/dL (13.5-17.5); MCH 31.2 pg (26.0-34.0); MCHC 32.4 g/dL (31.0-37.0); MCV 96.2 fL (80.0-100.0); MEAN PLATELET VOLUME 11.2 fL (7.4-10.4); PLATELET COUNT 202 10x3/uL (130-400); RBC 3.91 10x6/uL (4.20-6.10); RDW 15.4 % (11.5-14.5); WBC 5.6 10x3/uL (4.8-10.8)
[2018-07-21 13:01] LABS: BASOPHILS 0.5 % (0-2); EOSINOPHILS 14.5 % (0-7); IMMATURE GRANULOCYTES 0.2 % (0-5); LYMPHOCYTES 10.8 % (15-50); MONOCYTES 7.2 % (2-11); NEUTROPHILS 66.8 % (40-80)
[2018-07-21 13:10] LABS: ANION GAP 14.6 mmol/L (8-16); CALCIUM 8.6 mg/dL (8.5-10.1); CARBON DIOXIDE 28.9 mmol/L (21.0-32.0); CREATININE - SERUM 3.3 mg/dL (0.6-1.3)
[2018-07-21 13:11] LABS: POTASSIUM - SERUM 4.5 mmol/L (3.5-5.1)
[2018-07-21 14:36] VITALS: BP 96/68
[2018-07-21] MEDS ORDERED: BUMEX2 MG PO (17:16)
[2018-07-21] MEDS ORDERED: LEVOFLOXACIN500 MG PO (17:17)
--- NOTE | 2018-07-21 17:45 | NUR ---
WITHOUT CHANGES OR DISTRESS NOTED AT THIS TIME.
--- NOTE | 2018-07-21 18:46 | NUR ---
DC HOME PER PERSONAL CAR
--- NOTE | 2018-07-21 19:05 | MORECARE ---
CASE MANAGEMENT DISCHARGE SUMMARY PATIENT: JOAQUINA MCKEON UNIT: [id number] ADM DATE: 07/19/18 AGE: 68 : [birth year] SEX: M ROOM/BED: D.2944 AUTHOR: TYSON,DOC PHYSICIAN: REFERRING PHYSICIAN: JULES LLANES MD DATE OF SERVICE: 07/21/18 Discharge Plan Patient Name: JOAQUINA MCKEON Facility: [facility]:[place] : 1950 Planned Disposition: Home Anticipated Discharge Date: 07/21/18 Discharge Date: 07/21/2018 Expected LOS: 2 Initial Reviewer: [email or web address] Initial Review Date: 07/21/2018 Generated: 07/21/18 8:05 pm Comments DCP- Discharge Planning Updated by [email or web address]: Antoine Whittaker on 07/21/18 6:[address] Patient Name: JOAQUINA MCKEON Admission Status: ER Accout number: [id number] Admission Date: 07-19-2018 : 1950 Admission Diagnosis: Attending: JLUES LLANES Current LOS: 2 Anticipated DC Date: 07-21-2018 Planned Disposition: Home Primary Insurance: MEDICARE A & B Discharge Planning Comments: CM MET WITH PT IN ROOM TO DISCUSS DISCHARGE PLANNING AND NEEDS. PT REPORTS LIVING AT HOME INDEPENDENTLY WITH ADULT SON. PT HAS WALKER THAT HE DOES NOT USE. PT HAS NO MEDICAL EQUIPMENT PROVIDER PREFERENCE AND NO OUTSIDE SERVICES ASSISTING IN THE HOME. CM DISCUSSED AVAILABILITY OF HOME HEALTH, REHAB SERVICES AND MEDICAL EQUIPMENT. PT DENIES DISCHARGE NEEDS, REPORTS HIS SON WILL PICK HIM UP FOR DISCHARGE HOME. JACQUARD PLATE MAKER NURSE NOTIFIED. Personal Coach: Antoine Whittaker DCPIA - Discharge Planning Initial Assessment Updated by [email or web address]: Antoine Whittaker on 07/21/18 7:00 pm * Is the patient Alert and Oriented? Yes * How many steps to enter\exit or inside your home? * PCP [facility] [place], [place] * Pharmacy [facility] [address] * Preadmission Environment Home with Family * ADLs Independent * Equipment Walker * Other Equipment NO MEDICAL EQUIPMENT PROVIDER PREFERENCE * List name and contact numbers for known caregivers / representatives who currently or will assist patient after discharge: VERONICA ZURITA, * Verbal permission to speak to the caregivers and representatives has been obtained from the patient. N/A * Community resources currently utilized None * Please name any agencies selected above. NONE * Additional services required to return to the preadmission environment? No * Can the patient safely return to the preadmission environment? Yes * Has this patient been hospitalized within the prior 30 days at any hospital? No Patient Name: JOAQUINA MCKEON Page [id number] at 1905 All edits/amendments must be made on the electronic document DICTATION DATE: 07/21/181903 AIR TUCKER: KENDRA 07/21/181903 RPT#: [id number] DC DATE:07/21/18 STATUS: DIS IN [facility] [address] [place] [address] END OF REPORT
--- NOTE | 2018-07-23 14:58 | EC ---
PATIENT:JOAQUINA MCKEON DATE OF SERVICE: 07/19/18 SEX: M MEDICAL RECORD: [id number] DATE OF : 54 LOCATION:D.M2 D.212 AGE OF PATIENT: 68 ADMISSION DATE: 07/19/18 REFERRING PHYSICIAN: INTERPRETING PHYSICIAN: BRANDON HERNANDEZ MD ECHOCARDIOGRAM REPORT ECHO CHARGES 4 ECHO COMPLETE Date: 07/21/18 CLINICAL DIAGNOSIS: CHF HX OF CAD/STENTS/RENAL ECHOCARDIOGRAPHIC MEASUREMENTS (adult normal given) AC root (d.<3.7cm) 3.7 cm LV Septum d (<1.2 cm> 1.2 cm Valve Excursion 1.4 cm LV Septum (systole) 1.3 cm Left Atria (s.<4.0cm> 4.5 cm LVPW d(<1.2cm) 1.4 cm RV (d.<2.3cm) 4.9 cm LVPW (sytole) 1.5 cm LV diastole(<5.6CM) 5.9 cm MV E-F(>70mm/sec) cm LV systole 5.0 cm LVOT Diameter 1.7 cm MV exc.(>10mm) 1.6 cm Est.ejection fraction (50-75%) % DOPPLER: LVIT cm/sec A 43.0 cm/sec E 112 cm/sec LA cm/sec RVSP 29 mmHg LVOT 96 cm/sec AOP1/2T m/s Asc. Ao 110 cm/sec RVOT 58 cm/sec RA cm/sec PA 77 cm/sec AV Gradient Peak 4.86 mmHg AV Mean 2.62 mmHg AV Area 1.4 cm MV Gradient Peak 536 mmHg MV Mean 1.61 mmHg MV Area cm COMMENTS: Automobile Locator: 2 BRANDI WEISS Welder Gun: 1 Dr. Hernandez TAPE# PACS Pericardial Effusion N DATE OF SERVICE: FINDINGS: 1. Left ventricular chamber size is mildly dilated. Left ventricular systolic function is moderately reduced. Overall ejection fraction 35%. 2. Left atrium is enlarged at 4.5 cm. Right atrium and right ventricular chamber sizes are as well mildly dilated. 3. Valvular structures have normal structure and motion. 4. Doppler interrogation reveals [id number] mitral regurgitation, mild tricuspid regurgitation, no other valvular insufficiency or stenosis. Pulmonary ECHOCARDIOGRAM REPORT [id number] JOAQUINA MCKEON systolic pressure is normal, estimated at 29 mmHg. 5. No evidence of pericardial effusion or left ventricular thrombus. TRANSINT:[id number] Voice Confirmation ID: [id number] DOCUMENT ID: [id number] BRANDON HERNANDEZ MD at 1458 CC: [id number] DICTATION DATE: 07/22/18 1521 BARREL DEDENTING MACHINE OPERATOR: 07/22/18 2301 DIS IN 07/21/18 [place] [id number] [place] [id number]
== END 2018-07-21 18:46 | disposition home or self-care (01) | DRG 291 ==
LOC: D.ER 16:36 → D.M2 22:34 → D.EDHOLD 22:34 → D.M2 23:46
PROVIDERS: Emergency Medicine; Family Medicine; ADMIT Internal Medicine Nephrology; ATTEND Internal Medicine Nephrology
DX: I13.0 Hypertensive heart and chronic kidney disease with heart failure and stage 1 through stage 4 chronic kidney disease, or unspecified chronic kidney disease (principal); J18.9 Pneumonia, unspecified organism; I50.23 Acute on chronic systolic (congestive) heart failure; I42.9 Cardiomyopathy, unspecified; N18.9 Chronic kidney disease, unspecified; N28.9 Disorder of kidney and ureter, unspecified; D50.9 Iron deficiency anemia, unspecified; E78.5 Hyperlipidemia, unspecified; E11.22 Type 2 diabetes mellitus with diabetic chronic kidney disease; I87.2 Venous insufficiency (chronic) (peripheral); I48.91 Unspecified atrial fibrillation; E11.51 Type 2 diabetes mellitus with diabetic peripheral angiopathy without gangrene; I25.10 Atherosclerotic heart disease of native coronary artery without angina pectoris